=== PATIENT | female | born 1970 | race Two or more races ===

== ENCOUNTER 2018-09-30 11:33 | Inpatient (IN) | payer MEDICAID ==
[~2018-09-30] VITALS: Ht 165.1 cm; Wt 103.0 kg
[2018-09-30 11:49] VITALS: BP 183/91
[2018-09-30] MEDS ORDERED: furosemide 10 MG/1 ML 10ml inj IV ONE ×2 (13:00→13:45)
[2018-09-30 13:33] LABS: BASOPHILS % (AUTO) 0.4 % (0-1); EOSINOPHILS # (AUTO) 0.5 X10'3 (0-0.9); LYMPHOCYTES # (AUTO) 1.2 X10'3 (1.1-4.8); MONOCYTES # (AUTO) 0.6 X10'3 (0-0.9); NEUTROPHILS # (AUTO) 4.3 X10'3 (1.8-7.7); WHITE BLOOD COUNT 6.6 X10'3 (4.5-11.0)
[2018-09-30 13:34] LABS: ALANINE AMINOTRANSFERASE 22 U/L (12-78); ALBUMIN/GLOBULIN RATIO 0.8 (1.1-1.5); ALKALINE PHOSPHATASE 87 IU/L (46-116); ANION GAP 10 (8-16); ASPARTATE AMINO TRANSFERASE 23 U/L (10-37); BILIRUBIN,TOTAL 0.5 MG/DL (0.1-1.0); BLOOD UREA NITROGEN 19 MG/DL (7-18); BUN/CREATININE RATIO 22.6 (6.6-38.0); CALCIUM 8.5 MG/DL (8.5-10.1); CHLORIDE 103 MMOL/L (99-107); CREATININE 0.84 MG/DL (0.40-0.90); GLUCOSE 146 MG/DL (70-104); SODIUM 140 MMOL/L (135-145); TOTAL CARBON DIOXIDE 26.6 MMOL/L (24-32); TOTAL PROTEIN 6.6 G/DL (6.4-8.2); eGFR 72 ML/MIN
[2018-09-30 13:35] LABS: EOSINOPHILS % (AUTO) 7.7 % (0-6); HEMATOCRIT 24.7 % (35.0-45.0); HEMOGLOBIN 7.5 g/dl (12.0-16.0); LYMPHOCYTES % (AUTO) 18.4 % (21-51); MEAN CORPUSCULAR HEMOGLOBIN 18.9 PG (27.0-31.0); MEAN CORPUSCULAR HGB CONC 30.3 % (33.0-36.5); MEAN CORPUSCULAR VOLUME 62.3 FL (78-98); MEAN PLATELET VOLUME 9.8 FL (7.4-10.4); MONOCYTES % (AUTO) 9.1 % (2-12); NEUTROPHILS % (AUTO) 64.4 % (42-75); PLATELET COUNT 272 X10'3 (140-440); RED BLOOD COUNT 3.97 X10'6 (4.20-5.60)
[2018-09-30 13:38] LABS: D-DIMER 0.78 MG/L FEU (0-0.50); INR 1.2 INR; PARTIAL THROMBOPLASTIN TIME 27 SECONDS (22-32); PROTHROMBIN TIME 12.3 SECONDS (9.0-12.0)
[2018-09-30] MEDS ORDERED: potassium Cl 10 mEq/100mL bag IV ONE (13:50)
[2018-09-30 13:51] LABS: GIANT PLATELET FEW; LARGE PLATELETS FEW; PLATELET ESTIMATE NORMAL
[2018-09-30] MEDS ORDERED: potassium 10mEq/100ml NS w/LIDOcaine (10mg/bag) IV ONE (13:55)
[2018-09-30] MEDS ORDERED: ondansetron/PF 4mg/2ml inj IV PRN (14:25)
[2018-09-30] MEDS ORDERED: magnesium hydroxide 30ml (MOM) UD suspension PO PRN (14:25)
[2018-09-30] MEDS ORDERED: mag hydrox/Alum hydrox/simeth 30ml oral suspension PO PRN (14:25)
[2018-09-30] MEDS ORDERED: HYDROcodone/acetaminophen 5mg/325mg tablet PO PRN (14:25)
[2018-09-30] MEDS ORDERED: acetaminophen 325mg tablet PO PRN (14:25)
[2018-09-30] MEDS ORDERED: furosemide 10 MG/1 ML 10ml inj IV SCH (14:25)
[2018-09-30] MEDS ORDERED: morphine 2 MG/ML inj. syringe IV PRN ×2 (14:25)
[2018-09-30] MEDS ORDERED: iohexol 350MG/ML 100ml bottle IV ONE (14:59)
[2018-09-30] MEDS ORDERED: BECL10.62 INH (15:45)
[2018-09-30] MEDS ORDERED: IBUP-1984 PO (15:45)
[2018-09-30] MEDS ORDERED: AMLO10TA PO (15:45)
[2018-09-30] MEDS ORDERED: METF-436 PO (15:45)
[2018-09-30] MEDS ORDERED: ALBU18HF2 INH (15:45)
[2018-09-30] MEDS ORDERED: BENA20TA82 PO (15:55)
[2018-09-30] MEDS ORDERED: GABA-532 PO (15:55)
[2018-09-30] MEDS ORDERED: LORazepam 0.5 MG tablet PO PRN (16:00)
[2018-10-01] MEDS ORDERED: enoxaparin 40mg/0.4ml syringe SUBCUT SCH (08:00)
== END 2018-09-30 16:20 | disposition left against medical advice (07) | DRG 194 ==
LOC: ER 11:34 → ED HOLD 14:25 → CANBEDREQ 10-01 00:11
PROVIDERS: ADMIT Internal Medicine; ATTEND Internal Medicine
DX: I11.0 Hypertensive heart disease with heart failure (principal); E11.65 Type 2 diabetes mellitus with hyperglycemia; D50.9 Iron deficiency anemia, unspecified; F17.200 Nicotine dependence, unspecified, uncomplicated; E87.6 Hypokalemia; J45.909 Unspecified asthma, uncomplicated; I50.9 Heart failure, unspecified; Z53.21 Procedure and treatment not carried out due to patient leaving prior to being seen by health care provider; Z88.1 Allergy status to other antibiotic agents; Z88.6 Allergy status to analgesic agent; Z88.8 Allergy status to other drugs, medicaments and biological substances
CPT/HCPCS: 36415; 71045; 80053; 82948; 83880; 84484; 85025; 85379; 85610; 85730; 86885; 86900; 86901; 93005; 93306; 96365; 96375; 99285; G0378; J1940; J3480; Q9967

== ENCOUNTER 2019-06-06 23:47 | Inpatient (IN) | payer MEDICAID ==
[~2019-06-06] VITALS: Ht 167.6 cm; Wt 89.9 kg
[~2019-06-06 23:47] MED LIST: ALBU18HF2 INH; AMLO10TA PO; BECL10.62 INH; BENA20TA82 PO; GABA-532 PO; HYDR25TA4 PO; IBUP-1984 PO; METF-436 PO
[2019-06-07] MEDS ORDERED: furosemide 10 MG/1 ML 10ml inj IV ONE (00:05)
[2019-06-07] MEDS ORDERED: albuterol 2.5 MG/3 ML nebule NEB ONE (00:05)
[2019-06-07] MEDS ORDERED: nitroGLYCERIN 0.4mg/hour patch TD ONE (00:05)
[2019-06-07] MEDS ORDERED: nitroGLYCERIN 0.4mg SUBLingual tab SL PRN (00:05)
[2019-06-07 00:41] LABS: PARTIAL THROMBOPLASTIN TIME 29 SECONDS (22-32)
[2019-06-07 00:42] LABS: HEMOGLOBIN 8.3 g/dl (12.0-16.0); NEUTROPHILS # (AUTO) 5.5 X10'3 (1.8-7.7); WHITE BLOOD COUNT 7.6 X10'3 (4.5-11.0)
[2019-06-07 00:44] LABS: BASOPHILS # (AUTO) 0.1 X10'3 (0-0.2); BASOPHILS % (AUTO) 1.4 % (0-1); EOSINOPHILS # (AUTO) 0.2 X10'3 (0-0.9); HEMATOCRIT 28.8 % (35.0-45.0); LYMPHOCYTES # (AUTO) 1.1 X10'3 (1.1-4.8); LYMPHOCYTES % (AUTO) 14.4 % (21-51); MEAN CORPUSCULAR HEMOGLOBIN 20.9 PG (27.0-31.0); MEAN CORPUSCULAR HGB CONC 28.8 g/dL (33.0-36.5); MEAN CORPUSCULAR VOLUME 72.5 FL (78-98); MEAN PLATELET VOLUME 8.9 FL (7.4-10.4); MONOCYTES # (AUTO) 0.7 X10'3 (0-0.9); MONOCYTES % (AUTO) 9.3 % (2-12); NEUTROPHILS % (AUTO) 72.9 % (42-75); PLATELET COUNT 173 X10'3 (140-440); RED BLOOD COUNT 3.97 X10'6 (4.20-5.60); RED CELL DISTRIBUTION WIDTH 27.9 % (11.5-14.5)
[2019-06-07 00:53] LABS: ALANINE AMINOTRANSFERASE 23 U/L (12-78); ALBUMIN/GLOBULIN RATIO 0.7 (1.1-1.5); ALKALINE PHOSPHATASE 109 IU/L (46-116); ANION GAP 8 (8-16); ASPARTATE AMINO TRANSFERASE 26 U/L (10-37); BILIRUBIN,TOTAL 0.6 MG/DL (0.1-1.0); BLOOD UREA NITROGEN 8 MG/DL (7-18); CALCIUM 8.4 MG/DL (8.5-10.1); CHLORIDE 102 MMOL/L (99-107); CREATININE 0.73 MG/DL (0.40-0.90); ETHANOL < 0.010 GM/DL (0.0-0.010); GLUCOSE 151 MG/DL (70-104); LIPASE 82 U/L (73-393); MAGNESIUM 1.7 MG/DL (1.5-2.4); SODIUM 138 MMOL/L (135-145); TOTAL CARBON DIOXIDE 28.3 MMOL/L (24-32); TOTAL PROTEIN 7.2 G/DL (6.4-8.2); eGFR 85 ML/MIN
[2019-06-07] MEDS ORDERED: aspirin 81mg tab.chew PO ONE (01:15)
[2019-06-07] MEDS ORDERED: potassium 10mEq/100ml NS w/LIDOcaine (10mg/bag) IV ONE (01:25)
[2019-06-07] MEDS ORDERED: potassium Cl 10 mEq/100mL bag IV ONE (01:25)
[2019-06-07] MEDS ORDERED: magnesium 2GM in 50ml NS 50 ML IV ONE (01:25)
[2019-06-07] MEDS ORDERED: magnesium 4gm in 100ml NS 100 ML IV PRN (01:30)
[2019-06-07] MEDS ORDERED: potassium Cl 20 mEq SR tablet PO PRN (01:30)
[2019-06-07] MEDS ORDERED: magnesium 2GM in 50ml NS 50 ML IV PRN (01:30)
[2019-06-07] MEDS ORDERED: potassium CL 10mEq/100ml bag 100 ML IV PRN ×2 (01:30)
[2019-06-07 02:45] VITALS: BP 156/82
[2019-06-07 04:27] LABS: HYPOCHROMASIA 2+; PLATELET ESTIMATE NORMAL
[2019-06-07 04:28] LABS: ANISOCYTOSIS 3+; MICROCYTOSIS 1+
[2019-06-07] MEDS ORDERED: MESSAGE TO PHARMACY PO ONE (04:45)
[2019-06-07] MEDS ORDERED: dextrose 50%-water 50ml dispensing syringe IV PRN ×2 (04:45)
[2019-06-07] MEDS ORDERED: glucagon, human recombinant 1mg kit SUBCUT PRN (04:45)
[2019-06-07] MEDS ORDERED: dextrose ORAL solution 15 GM/59 ML bottle PO PRN ×2 (04:45)
[2019-06-07] MEDS ORDERED: insulin Lispro (HumaLOG) vial - multi-dose SQ SCH (04:45)
--- NOTE | 2019-06-07 06:22 | NUR ---
Problems reprioritized. Patient report given, questions answered & plan of care reviewed with Rosalba CURTIS.
[2019-06-07 08:00] VITALS: BP 166/88
[2019-06-07] MEDS ORDERED: pantoprazole 40 MG vial IV SCH (08:00)
[2019-06-07] MEDS: K and/or MAG REPLACEMENT MC SCH (08:00)
[2019-06-07] MEDS ORDERED: heparin, porcine 5000 units/ml vial SQ SCH (08:00)
[2019-06-07] MEDS ORDERED: ESOMEPRAZOLE 40 MG VIAL IV SCH (08:00)
[2019-06-07] MEDS: furosemide 10 MG/1 ML 10ml inj IV SCH ×2 (08:12→19:50)
[2019-06-07] MEDS: levoTHYROXINE 25mcg tablet PO SCH (08:12)
[2019-06-07] MEDS: potassium Cl 20 mEq SR tablet PO PRN ×3 (08:14→21:08)
[2019-06-07] MEDS ORDERED: FURO-150 PO (09:14)
[2019-06-07] MEDS ORDERED: LEVO25TA7 PO (09:14)
[2019-06-07] MEDS ORDERED: POTA10TA15 PO (09:15)
[2019-06-07] MEDS ORDERED: FERR-28 PO (09:16)
[2019-06-07] MEDS: ipratropium/albuterol 3ml nebule NEB PRN (09:18)
[2019-06-07] MEDS ORDERED: pneumococcal 23-VAL P-sac vacc 25 mcg/0.5ml vial IMVAC ONE (10:00)
[2019-06-07] MEDS ORDERED: HYDR12.55 PO (10:18)
[2019-06-07 11:00] VITALS: BP 137/66
[2019-06-07] MEDS: nicotine 14mg patch - 24hr TD SCH (15:23)
[2019-06-07] MEDS: HYDROcodone/acetaminophen 5mg/325mg tablet PO PRN ×2 (16:14→21:08)
[2019-06-07 20:00] VITALS: BP 152/94
[2019-06-07] MEDS: insulin glargine (Lantus) pen - multi-dose SQ SCH (21:00)
[2019-06-07] MEDS ORDERED: famotidine 20mg tablet PO SCH (21:00)
[2019-06-07] MEDS: ondansetron/PF 4mg/2ml inj IV PRN (21:08)
[2019-06-07] MEDS: gabapentin 300mg capsule PO SCH (21:09)
[2019-06-08] VITALS: BP 138/79
[2019-06-08] MEDS: albuterol 2.5 MG/3 ML nebule NEB PRN (02:47)
[2019-06-08 05:21] LABS: ALBUMIN 2.8 G/DL (3.4-5.0); ANION GAP 5 (8-16); BLOOD UREA NITROGEN 9 MG/DL (7-18); BUN/CREATININE RATIO 9.3 (6.6-38.0); CALCIUM 8.2 MG/DL (8.5-10.1); CHLORIDE 103 MMOL/L (99-107); CREATININE 0.97 MG/DL (0.40-0.90); GLUCOSE 120 MG/DL (70-104); MAGNESIUM 1.4 MG/DL (1.5-2.4); POTASSIUM 3.8 MMOL/L (3.5-5.1); SODIUM 139 MMOL/L (135-145); TOTAL CARBON DIOXIDE 31.1 MMOL/L (24-32); eGFR 61 ML/MIN
[2019-06-08 05:28] LABS: BASOPHILS # (AUTO) 0.1 X10'3 (0-0.2); BASOPHILS % (AUTO) 1.1 % (0-1); EOSINOPHILS # (AUTO) 0.1 X10'3 (0-0.9); EOSINOPHILS % (AUTO) 1.7 % (0-6); HEMATOCRIT 26.6 % (35.0-45.0); HEMOGLOBIN 7.7 g/dl (12.0-16.0); LYMPHOCYTES # (AUTO) 0.9 X10'3 (1.1-4.8); LYMPHOCYTES % (AUTO) 15.1 % (21-51); MEAN CORPUSCULAR HEMOGLOBIN 21.2 PG (27.0-31.0); MEAN CORPUSCULAR HGB CONC 29.1 g/dL (33.0-36.5); MEAN CORPUSCULAR VOLUME 72.8 FL (78-98); MEAN PLATELET VOLUME 8.3 FL (7.4-10.4); MONOCYTES # (AUTO) 0.5 X10'3 (0-0.9); MONOCYTES % (AUTO) 7.5 % (2-12); NEUTROPHILS # (AUTO) 4.6 X10'3 (1.8-7.7); NEUTROPHILS % (AUTO) 74.6 % (42-75); PLATELET COUNT 185 X10'3 (140-440); RED BLOOD COUNT 3.65 X10'6 (4.20-5.60); RED CELL DISTRIBUTION WIDTH 27.6 % (11.5-14.5); WHITE BLOOD COUNT 6.1 X10'3 (4.5-11.0)
[2019-06-08] MEDS: HYDROcodone/acetaminophen 5mg/325mg tablet PO PRN ×3 (05:55→21:08)
--- NOTE | 2019-06-08 06:22 | NUR ---
Patient in room ALISSON 350. I have received report from EVER Casas and had the opportunity to ask questions and assume patient care.
[2019-06-08 07:00] VITALS: BP 156/80
[2019-06-08] MEDS: K and/or MAG REPLACEMENT MC SCH (07:07)
[2019-06-08] MEDS: pantoprazole 40mg Tablet.DR PO SCH (07:28)
[2019-06-08] MEDS: levoTHYROXINE 25mcg tablet PO SCH (07:28)
[2019-06-08] MEDS: ferrous sulfate 325mg tablet PO SCH (07:29)
[2019-06-08] MEDS: furosemide 10 MG/1 ML 10ml inj IV SCH ×2 (07:29→20:06)
[2019-06-08] MEDS: potassium chloride 10mEq ER tablet PO SCH (07:29)
[2019-06-08] MEDS: amLODIPine 5mg tablet PO SCH (07:30)
[2019-06-08] MEDS: HYDROchlorothiazide 12.5mg capsule PO SCH (07:30)
[2019-06-08] MEDS: magnesium Cl slow-release 64mg tablet PO PRN ×2 (07:31→20:03)
[2019-06-08] MEDS: lisinopril 10 MG tablet PO SCH (07:31)
[2019-06-08] MEDS: nicotine 14mg patch - 24hr TD SCH (07:31)
[2019-06-08] MEDS ORDERED: levoTHYROXINE 25mcg tablet PO SCH (08:00)
[2019-06-08] MEDS: budesonide 0.5mg/2ml UD nebule IH SCH ×2 (09:00→21:06)
[2019-06-08] MEDS: ondansetron/PF 4mg/2ml inj IV PRN ×2 (09:04→18:37)
--- NOTE | 2019-06-08 09:14 | NUR ---
Patient reported nausea to PCT. Zofran taken into patient and patient had vomited into BSC. Emesis was undigested food. Unable to measure due to it being mixed with urine. Zofran given to patient. Will reassess in one hour to ensure patient is no longer nauseated.
[2019-06-08 11:00] VITALS: BP 120/56
[2019-06-08] MEDS: lactulose 20gm/30ml cup PO SCH ×2 (15:31→20:33)
--- NOTE | 2019-06-08 18:21 | NUR ---
Problems reprioritized. Patient report given, questions answered & plan of care reviewed with EVER Farooq.
[2019-06-08 20:00] VITALS: BP 120/64
[2019-06-08] MEDS: gabapentin 300mg capsule PO SCH (20:03)
--- NOTE | 2019-06-08 20:34 | NUR ---
PT. STATES SHE DOES NOT WANT LACTULOSE D/T MAKES HER VERY NAUSEOUS.
--- NOTE | 2019-06-08 20:34 | NUR ---
Patient in room [facility] 350. I have received report from EVER Gomez and had the opportunity to ask questions and assume patient care. Addendum: 06/08/19 at 2034 by Coral Morocho RN Amended: Links added.
[2019-06-08] MEDS: insulin glargine (Lantus) pen - multi-dose SQ SCH (21:00)
[2019-06-09] VITALS: BP 136/74
[2019-06-09] MEDS: HYDROcodone/acetaminophen 5mg/325mg tablet PO PRN ×3 (01:25→20:00)
--- NOTE | 2019-06-09 06:10 | NUR ---
Patient in room [facility] 350. I have received report from EVER Farooq and had the opportunity to ask questions and assume patient care.
[2019-06-09 06:11] LABS: BASOPHILS % (AUTO) 0.7 % (0-1); EOSINOPHILS # (AUTO) 0.1 X10'3 (0-0.9); HEMATOCRIT 25.9 % (35.0-45.0); HEMOGLOBIN 7.5 g/dl (12.0-16.0); LYMPHOCYTES # (AUTO) 1.2 X10'3 (1.1-4.8); LYMPHOCYTES % (AUTO) 19.2 % (21-51); MEAN CORPUSCULAR HEMOGLOBIN 21.2 PG (27.0-31.0); MEAN CORPUSCULAR HGB CONC 29.1 g/dL (33.0-36.5); MEAN CORPUSCULAR VOLUME 72.9 FL (78-98); MEAN PLATELET VOLUME 8.4 FL (7.4-10.4); MONOCYTES # (AUTO) 0.6 X10'3 (0-0.9); MONOCYTES % (AUTO) 9.2 % (2-12); NEUTROPHILS # (AUTO) 4.4 X10'3 (1.8-7.7); NEUTROPHILS % (AUTO) 68.9 % (42-75); PLATELET COUNT 189 X10'3 (140-440); RED BLOOD COUNT 3.56 X10'6 (4.20-5.60); RED CELL DISTRIBUTION WIDTH 27.1 % (11.5-14.5); WHITE BLOOD COUNT 6.3 X10'3 (4.5-11.0)
--- NOTE | 2019-06-09 06:12 | NUR ---
Problems reprioritized. Patient report given, questions answered & plan of care reviewed with EVER Gomez. Addendum: 06/09/19 at 0613 by Coral Morocho RN Amended: Links added.
[2019-06-09 06:34] LABS: ALBUMIN 2.7 G/DL (3.4-5.0); ANION GAP 5 (8-16); BLOOD UREA NITROGEN 14 MG/DL (7-18); BUN/CREATININE RATIO 13.1 (6.6-38.0); CALCIUM 8.5 MG/DL (8.5-10.1); CHLORIDE 102 MMOL/L (99-107); CREATININE 1.07 MG/DL (0.40-0.90); GLUCOSE 102 MG/DL (70-104); MAGNESIUM 1.6 MG/DL (1.5-2.4); POTASSIUM 4.4 MMOL/L (3.5-5.1); SODIUM 138 MMOL/L (135-145); eGFR 55 ML/MIN
[2019-06-09] MEDS: K and/or MAG REPLACEMENT MC SCH (06:52)
[2019-06-09 06:53] LABS: PLATELET ESTIMATE NORMAL
[2019-06-09 06:54] LABS: ANISOCYTOSIS 3+; HYPOCHROMASIA 2+; MICROCYTOSIS 1+; POLYCHROMASIA 1+
[2019-06-09 07:00] VITALS: BP 168/82
[2019-06-09] MEDS: pantoprazole 40mg Tablet.DR PO SCH (07:16)
[2019-06-09] MEDS: levoTHYROXINE 25mcg tablet PO SCH (07:16)
[2019-06-09] MEDS: nicotine 14mg patch - 24hr TD SCH (07:17)
[2019-06-09] MEDS: furosemide 10 MG/1 ML 10ml inj IV SCH ×2 (07:19→20:38)
[2019-06-09] MEDS: potassium chloride 10mEq ER tablet PO SCH (07:20)
[2019-06-09] MEDS: HYDROchlorothiazide 12.5mg capsule PO SCH (07:21)
[2019-06-09] MEDS: amLODIPine 5mg tablet PO SCH (07:21)
[2019-06-09] MEDS: lisinopril 10 MG tablet PO SCH (07:21)
[2019-06-09] MEDS: lactulose 20gm/30ml cup PO SCH ×3 (08:00→23:32)
[2019-06-09] MEDS: ferrous sulfate 325mg tablet PO SCH (08:00)
[2019-06-09] MEDS: budesonide 0.5mg/2ml UD nebule IH SCH ×2 (08:56→19:57)
[2019-06-09 11:00] VITALS: BP 131/77
[2019-06-09 18:00] VITALS: BP 120/73
--- NOTE | 2019-06-09 18:20 | NUR ---
Problems reprioritized. Patient report given, questions answered & plan of care reviewed with EVER Siegel.
--- NOTE | 2019-06-09 18:21 | NUR ---
Patient in room [facility] 350. I have received report from EVER Gomez and had the opportunity to ask questions and assume patient care.
[2019-06-09] MEDS: albuterol 2.5 MG/3 ML nebule NEB PRN (19:57)
[2019-06-09] MEDS: gabapentin 300mg capsule PO SCH (20:39)
[2019-06-09] MEDS: insulin glargine (Lantus) pen - multi-dose SQ SCH (20:45)
[2019-06-10] VITALS: BP 129/66
[2019-06-10] MEDS: HYDROcodone/acetaminophen 5mg/325mg tablet PO PRN ×4 (04:51→23:32)
[2019-06-10 05:36] LABS: ALBUMIN 3.1 G/DL (3.4-5.0); ANION GAP 5 (8-16); BLOOD UREA NITROGEN 15 MG/DL (7-18); BUN/CREATININE RATIO 16.7 (6.6-38.0); CALCIUM 9.1 MG/DL (8.5-10.1); CHLORIDE 100 MMOL/L (99-107); GLUCOSE 101 MG/DL (70-104); MAGNESIUM 1.6 MG/DL (1.5-2.4); POTASSIUM 4.4 MMOL/L (3.5-5.1); SODIUM 137 MMOL/L (135-145); TOTAL CARBON DIOXIDE 32.4 MMOL/L (24-32); eGFR 67 ML/MIN
[2019-06-10 05:45] LABS: BASOPHILS # (AUTO) 0.1 X10'3 (0-0.2); BASOPHILS % (AUTO) 0.8 % (0-1); EOSINOPHILS # (AUTO) 0.1 X10'3 (0-0.9); HEMATOCRIT 26.8 % (35.0-45.0); HEMOGLOBIN 7.8 g/dl (12.0-16.0); LYMPHOCYTES % (AUTO) 16.1 % (21-51); MEAN CORPUSCULAR HEMOGLOBIN 21.3 PG (27.0-31.0); MEAN CORPUSCULAR VOLUME 73.7 FL (78-98); MEAN PLATELET VOLUME 9.2 FL (7.4-10.4); MONOCYTES # (AUTO) 0.7 X10'3 (0-0.9); MONOCYTES % (AUTO) 10.8 % (2-12); NEUTROPHILS # (AUTO) 4.6 X10'3 (1.8-7.7); NEUTROPHILS % (AUTO) 70.3 % (42-75); PLATELET COUNT 181 X10'3 (140-440); RED BLOOD COUNT 3.63 X10'6 (4.20-5.60); RED CELL DISTRIBUTION WIDTH 27.1 % (11.5-14.5); WHITE BLOOD COUNT 6.5 X10'3 (4.5-11.0)
--- NOTE | 2019-06-10 06:27 | NUR ---
Problems reprioritized. Patient report given, questions answered & plan of care reviewed with EVER Duke.
--- NOTE | 2019-06-10 06:28 | NUR ---
Patient in room [facility]ISSON 350. I have received report from EVER MCCURDY and had the opportunity to ask questions and assume patient care.
[2019-06-10] MEDS: levoTHYROXINE 25mcg tablet PO SCH (07:10)
[2019-06-10] MEDS: amLODIPine 5mg tablet PO SCH (07:10)
[2019-06-10] MEDS: potassium chloride 10mEq ER tablet PO SCH (07:10)
[2019-06-10] MEDS: HYDROchlorothiazide 12.5mg capsule PO SCH (07:10)
[2019-06-10] MEDS: pantoprazole 40mg Tablet.DR PO SCH (07:11)
[2019-06-10] MEDS: ferrous sulfate 325mg tablet PO SCH (07:11)
[2019-06-10] MEDS: lactulose 20gm/30ml cup PO SCH ×3 (07:11→23:33)
[2019-06-10] MEDS: furosemide 10 MG/1 ML 10ml inj IV SCH (07:11)
[2019-06-10] MEDS: lisinopril 10 MG tablet PO SCH (07:11)
[2019-06-10] MEDS: nicotine 14mg patch - 24hr TD SCH (07:12)
[2019-06-10 07:14] LABS: PLATELET ESTIMATE NORMAL
[2019-06-10 07:15] LABS: ANISOCYTOSIS 3+; HYPOCHROMASIA 1+; MICROCYTOSIS 1+; POLYCHROMASIA FEW; STOMATOCYTES 2+
[2019-06-10 07:16] LABS: LARGE PLATELETS FEW; SCHISTOCYTES FEW
[2019-06-10] MEDS: K and/or MAG REPLACEMENT MC SCH (07:18)
[2019-06-10 07:19] VITALS: BP 157/83
[2019-06-10] MEDS: budesonide 0.5mg/2ml UD nebule IH SCH ×2 (09:00→20:15)
[2019-06-10] MEDS: ondansetron/PF 4mg/2ml inj IV PRN (09:24)
[2019-06-10 11:45] VITALS: BP 97/70
[2019-06-10 18:00] VITALS: BP 160/76
--- NOTE | 2019-06-10 18:38 | NUR ---
Problems reprioritized. Patient report given, questions answered & plan of care reviewed with EVER HAMM.
--- NOTE | 2019-06-10 18:39 | NUR ---
Patient in room [facility] 350. I have received report from Kenan CURTIS and had the opportunity to ask questions and assume patient care.
[2019-06-10] MEDS: gabapentin 300mg capsule PO SCH (19:47)
[2019-06-10] MEDS: albuterol 2.5 MG/3 ML nebule NEB PRN (20:15)
[2019-06-10] MEDS: insulin glargine (Lantus) pen - multi-dose SQ SCH (21:00)
[2019-06-10 23:55] VITALS: BP 158/74
[2019-06-11 04:49] LABS: BASOPHILS % (AUTO) 0.9 % (0-1); EOSINOPHILS # (AUTO) 0.1 X10'3 (0-0.9); EOSINOPHILS % (AUTO) 2.8 % (0-6); HEMATOCRIT 25.4 % (35.0-45.0); HEMOGLOBIN 7.4 g/dl (12.0-16.0); LYMPHOCYTES # (AUTO) 1.1 X10'3 (1.1-4.8); LYMPHOCYTES % (AUTO) 20.3 % (21-51); MEAN CORPUSCULAR HEMOGLOBIN 21.6 PG (27.0-31.0); MEAN CORPUSCULAR HGB CONC 29.3 g/dL (33.0-36.5); MEAN CORPUSCULAR VOLUME 73.8 FL (78-98); MEAN PLATELET VOLUME 8.3 FL (7.4-10.4); MONOCYTES # (AUTO) 0.7 X10'3 (0-0.9); MONOCYTES % (AUTO) 12.3 % (2-12); NEUTROPHILS # (AUTO) 3.4 X10'3 (1.8-7.7); NEUTROPHILS % (AUTO) 63.7 % (42-75); PLATELET COUNT 183 X10'3 (140-440); RED BLOOD COUNT 3.44 X10'6 (4.20-5.60); RED CELL DISTRIBUTION WIDTH 26.7 % (11.5-14.5); WHITE BLOOD COUNT 5.4 X10'3 (4.5-11.0)
[2019-06-11 05:02] LABS: ALBUMIN 2.9 G/DL (3.4-5.0); ANION GAP 4 (8-16); BLOOD UREA NITROGEN 17 MG/DL (7-18); CALCIUM 8.7 MG/DL (8.5-10.1); CHLORIDE 98 MMOL/L (99-107); CREATININE 1.13 MG/DL (0.40-0.90); GLUCOSE 92 MG/DL (70-104); MAGNESIUM 1.6 MG/DL (1.5-2.4); POTASSIUM 4.7 MMOL/L (3.5-5.1); SODIUM 136 MMOL/L (135-145); TOTAL CARBON DIOXIDE 34.2 MMOL/L (24-32); eGFR 51 ML/MIN
[2019-06-11] MEDS: furosemide 10 MG/1 ML 10ml inj IV SCH ×2 (05:05→14:19)
--- NOTE | 2019-06-11 06:30 | NUR ---
Patient in room MED 311. I have received report from Ray CURTIS and had the opportunity to ask questions and assume patient care.
--- NOTE | 2019-06-11 06:40 | NUR ---
Problems reprioritized. Patient report given, questions answered & plan of care reviewed with Brandon RN. Pt sitting up on side of bed. A+Ox4, no s/s of distress. IV is intact
[2019-06-11 07:00] VITALS: BP 154/79
[2019-06-11 07:22] LABS: PLATELET ESTIMATE NORMAL
[2019-06-11 07:23] LABS: ANISOCYTOSIS 3+; HYPOCHROMASIA 1+; MICROCYTOSIS 1+; POLYCHROMASIA 2+; STOMATOCYTES 1+
[2019-06-11] MEDS: budesonide 0.5mg/2ml UD nebule IH SCH ×2 (07:30→20:45)
[2019-06-11] MEDS: ipratropium/albuterol 3ml nebule NEB PRN (07:31)
[2019-06-11] MEDS: K and/or MAG REPLACEMENT MC SCH (08:00)
[2019-06-11] MEDS: ferrous sulfate 325mg tablet PO SCH (08:00)
[2019-06-11] MEDS: potassium chloride 10mEq ER tablet PO SCH (09:23)
[2019-06-11] MEDS: HYDROchlorothiazide 12.5mg capsule PO SCH (09:23)
[2019-06-11] MEDS: lisinopril 10 MG tablet PO SCH (09:24)
[2019-06-11] MEDS: pantoprazole 40mg Tablet.DR PO SCH (09:25)
[2019-06-11] MEDS: levoTHYROXINE 25mcg tablet PO SCH (09:26)
[2019-06-11] MEDS: amLODIPine 5mg tablet PO SCH (09:26)
[2019-06-11] MEDS: HYDROcodone/acetaminophen 5mg/325mg tablet PO PRN ×2 (09:27→21:00)
[2019-06-11] MEDS: nicotine 14mg patch - 24hr TD SCH (09:27)
[2019-06-11] MEDS: lactulose 20gm/30ml cup PO SCH ×2 (09:29→17:06)
[2019-06-11 11:00] VITALS: BP 145/75
--- NOTE | 2019-06-11 11:07 | NUR ---
Initial: Pt admit with anasarca likely d/t fluid overload from CHF and cirrhosis of the liver. Pt being diuresed with Lasix. Per paracentesis report 06/10 a paracentesis was not performed d/t no fluid identified in all 4 quadrants. Pt with documented wt change of -125 kg, likely not accurate as the wt change occurred in 1 day, however likely that pt will experiences some wt changes r/t fluid with -6.55L fluid balance over the last five days. Pt currently on a heart healthy diet with documented 100% PO intake meeting nutrient needs. LBM 06/10. No nutrition diagnosis at this time. Will continue to follow. Recommendations: 1) Continue heart healthy diet 2) Continue iron supplement given hx anemia and low MCV; 73.8 today 3) Wt per rx Addendum: 06/11/19 at [address] Amended: Links added.
[2019-06-11] MEDS ORDERED: furosemide inj 100 MG in normal saline 100ml IV soln 90 ML IV SCH (15:40)
--- NOTE | 2019-06-11 17:25 | NUR ---
Problems reprioritized. Patient report given, questions answered & plan of care reviewed with Angelica CURTIS. Was notified that I was responsible for an admission assessment on this patient by receiving RN. I notified RN that I was not responsible for a 2 RN skin check that had not been done 5 days prior on admission. I responded that I was not responsible for that skin assessment and that upon transfer that receiving nurse would need to repeat the assessment even if I were do complete it at that time. Also informed nurse that if any skin wound was found that it would fall on surgical unit if they were to find any breakdown of skin. Reluctantly a uncalled for skin assessment was completed before transfer.
--- NOTE | 2019-06-11 17:30 | NUR ---
RECEIVED REPORT FROM JEWELL RN ON SURGICAL AND INFORMED HIM THAT 2 RN SKIN ASSESSMENT NEEDED TO BE DONE ON PATIENT BEFORE TRANSFER AND JEWELL RN REFUSED, STATED IT WASN'T HIS RESPONSIBILITY BECAUSE SHE WOULD BE MY PATIENT IN 5 MINUTES
[2019-06-11 18:00] VITALS: BP 124/61
--- NOTE | 2019-06-11 18:40 | NUR ---
Orientee documentation: I have reviewed and agree with all interventions, assessments performed and documented by EVER Dominguez.
[2019-06-11] MEDS: furosemide inj 100 MG in normal saline 100ml IV soln 90 ML IV SCH (19:04)
[2019-06-11] MEDS: albuterol 2.5 MG/3 ML nebule NEB PRN (20:45)
[2019-06-11] MEDS: insulin glargine (Lantus) pen - multi-dose SQ SCH (21:00)
[2019-06-11] MEDS: gabapentin 300mg capsule PO SCH (21:00)
[2019-06-11] MEDS: rifaximin 550mg tablet PO SCH (21:22)
[2019-06-11 22:00] VITALS: BP 130/51
[2019-06-12] VITALS (10 sets, daily range): BP systolic 105–141; BP diastolic 44–68
[2019-06-12] MEDS: lactulose 20gm/30ml cup PO SCH ×3 (01:45→16:02)
[2019-06-12] MEDS: HYDROcodone/acetaminophen 5mg/325mg tablet PO PRN ×4 (01:50→20:35)
[2019-06-12] MEDS: furosemide inj 100 MG in normal saline 100ml IV soln 90 ML IV SCH ×2 (05:02→10:54)
--- NOTE | 2019-06-12 05:50 | NUR ---
Patient has been noncompliant with instructions of not taking off nasal cannula for any period of time as well as resisting preventative fall risk instructions. Patient has been found sitting on edge of bed falling asleep, when told to lay down to sleep, patient sits up at the edge of the bed shortly after instruction. Will continue to monitor closely.
[2019-06-12 06:01] LABS: BASOPHILS % (AUTO) 0.8 % (0-1); EOSINOPHILS # (AUTO) 0.1 X10'3 (0-0.9); EOSINOPHILS % (AUTO) 2.1 % (0-6); HEMATOCRIT 24.5 % (35.0-45.0); HEMOGLOBIN 7.3 g/dl (12.0-16.0); LYMPHOCYTES % (AUTO) 21.8 % (21-51); MEAN CORPUSCULAR HEMOGLOBIN 21.5 PG (27.0-31.0); MEAN CORPUSCULAR HGB CONC 29.6 g/dL (33.0-36.5); MEAN CORPUSCULAR VOLUME 72.5 FL (78-98); MEAN PLATELET VOLUME 8.2 FL (7.4-10.4); MONOCYTES # (AUTO) 0.6 X10'3 (0-0.9); MONOCYTES % (AUTO) 12.1 % (2-12); NEUTROPHILS # (AUTO) 2.9 X10'3 (1.8-7.7); NEUTROPHILS % (AUTO) 63.2 % (42-75); PLATELET COUNT 176 X10'3 (140-440); RED BLOOD COUNT 3.38 X10'6 (4.20-5.60); RED CELL DISTRIBUTION WIDTH 26.9 % (11.5-14.5); WHITE BLOOD COUNT 4.6 X10'3 (4.5-11.0)
[2019-06-12 06:39] LABS: ALBUMIN 2.8 G/DL (3.4-5.0); ANION GAP 3 (8-16); BLOOD UREA NITROGEN 15 MG/DL (7-18); CALCIUM 8.7 MG/DL (8.5-10.1); CHLORIDE 96 MMOL/L (99-107); CREATININE 0.88 MG/DL (0.40-0.90); GLUCOSE 91 MG/DL (70-104); MAGNESIUM 1.5 MG/DL (1.5-2.4); SODIUM 137 MMOL/L (135-145); TOTAL CARBON DIOXIDE 38.1 MMOL/L (24-32); eGFR 69 ML/MIN
--- NOTE | 2019-06-12 06:52 | NUR ---
Patient in room MED 311. I have received report from ERIK and had the opportunity to ask questions and assume patient care.
[2019-06-12] MEDS: potassium chloride 10mEq ER tablet PO SCH (07:17)
[2019-06-12] MEDS: amLODIPine 5mg tablet PO SCH (07:17)
[2019-06-12] MEDS: lisinopril 10 MG tablet PO SCH (07:17)
[2019-06-12] MEDS: ferrous sulfate 325mg tablet PO SCH (07:18)
[2019-06-12] MEDS: HYDROchlorothiazide 12.5mg capsule PO SCH (07:18)
[2019-06-12] MEDS: levoTHYROXINE 25mcg tablet PO SCH (07:18)
[2019-06-12] MEDS: pantoprazole 40mg Tablet.DR PO SCH (07:19)
[2019-06-12] MEDS: nicotine 14mg patch - 24hr TD SCH (07:22)
[2019-06-12] MEDS: K and/or MAG REPLACEMENT MC SCH (07:30)
[2019-06-12 08:10] LABS: ANISOCYTOSIS 3+; HYPOCHROMASIA 2+; MICROCYTOSIS 1+; PLATELET ESTIMATE NORMAL; POIKILOCYTOSIS FEW; POLYCHROMASIA 2+; STOMATOCYTES 1+
[2019-06-12] MEDS: rifaximin 550mg tablet PO SCH ×2 (09:04→20:35)
[2019-06-12] MEDS: budesonide 0.5mg/2ml UD nebule IH SCH ×2 (10:35→19:20)
[2019-06-12] MEDS: ipratropium/albuterol 3ml nebule NEB PRN (10:41)
--- NOTE | 2019-06-12 10:46 | NUR ---
PAGER ID: [phone] MESSAGE: 311: oYlanda - any plans for how long you want pt on Lasix gtt? ty nurse Harris ext [phone]
--- NOTE | 2019-06-12 11:04 | NUR ---
case management paged: [phone]: PATO - patient is agreeable to go to [facility] for liver work up. ty
--- NOTE | 2019-06-12 11:05 | NUR ---
Dr. velasquez paged: PAGER ID: [phone] MESSAGE: 311: Yolanda - pt agreeable to transfer to [facility] for liver workup if this is still an option. nurse Harris ext [phone]
--- NOTE | 2019-06-12 12:45 | NUR ---
This morning pt was non-compliant with directions from RNs. Pt was told multiple times not to fall asleep on bedside table while on side of bed because she could fall. RNs advised her to sit in bed instead. She refused and continued laying on bedside table. Dr. Gaytan rounded about 0900 and told pt to sit up or the pt would fall and pt refused. Dr Gaytan told pt that if she was not going to be compliant than she would just discharge her. Pt became emotional and began crying, Lucila told pt she would be back to speak with her. Physical Therapy came with recliner chair for pt. Pt is now sitting in that comfortably.
--- NOTE | 2019-06-12 15:26 | NUR ---
PAGER ID: [phone] MESSAGE: [phone] Yolanda. Patient is asking if we can put in a real jolly until Lasix drip is done. Angelica [phone] Dr Gaytan called back, new order received, ok to place jolly.
[2019-06-12 16:26] LABS: ALBUMIN 2.7 G/DL (3.4-5.0); ANION GAP 5 (8-16); BLOOD UREA NITROGEN 15 MG/DL (7-18); BUN/CREATININE RATIO 15.3 (6.6-38.0); CALCIUM 8.8 MG/DL (8.5-10.1); CHLORIDE 93 MMOL/L (99-107); CREATININE 0.98 MG/DL (0.40-0.90); GLUCOSE 116 MG/DL (70-104); MAGNESIUM 1.5 MG/DL (1.5-2.4); PHOSPHORUS 3.9 MG/DL (2.3-4.5); POTASSIUM 3.8 MMOL/L (3.5-5.1); SODIUM 138 MMOL/L (135-145); eGFR 61 ML/MIN
[2019-06-12 16:34] LABS: TOTAL CARBON DIOXIDE 40.5 MMOL/L (24-32)
--- NOTE | 2019-06-12 16:42 | NUR ---
PAGER ID: [phone] MESSAGE: [phone] Yolanda. FYI venous C02 is 40.5. No complaints from patient. Angelica [phone]
--- NOTE | 2019-06-12 18:16 | NUR ---
Orienteer documentation: I have reviewed and agree with all interventions, assessments performed and documented by Susan CURTIS.
--- NOTE | 2019-06-12 18:17 | NUR ---
Problems reprioritized. Patient report given, questions answered & plan of care reviewed with Valery CURTIS.
[2019-06-12] MEDS: albuterol 2.5 MG/3 ML nebule NEB PRN (19:20)
[2019-06-12] MEDS: insulin glargine (Lantus) pen - multi-dose SQ SCH (20:30)
[2019-06-12] MEDS: gabapentin 300mg capsule PO SCH (20:35)
[2019-06-12 21:01] LABS: OCCULT BLOOD STOOL NEGATIVE (Neg)
[2019-06-12 22:18] LABS: ALBUMIN 2.8 G/DL (3.4-5.0); ANION GAP 5 (8-16); BLOOD UREA NITROGEN 14 MG/DL (7-18); BUN/CREATININE RATIO 16.5 (6.6-38.0); CHLORIDE 95 MMOL/L (99-107); CREATININE 0.85 MG/DL (0.40-0.90); GLUCOSE 107 MG/DL (70-104); MAGNESIUM 1.5 MG/DL (1.5-2.4); PHOSPHORUS 3.7 MG/DL (2.3-4.5); POTASSIUM 3.9 MMOL/L (3.5-5.1); SODIUM 137 MMOL/L (135-145); TOTAL CARBON DIOXIDE 37.5 MMOL/L (24-32); eGFR 71 ML/MIN
--- NOTE | 2019-06-13 00:23 | NUR ---
Pagelincoln night hospitalist regarding patient's fall. ACCE 311 patient had a fall. She kept on getting out of bed d/t SOB (CHF), put her in recliner, and she leaned forward and fell down on the floor. Buttocks and right knee pain. Assessed patient right away, no other injury. No heparin.
[2019-06-13] MEDS: lactulose 20gm/30ml cup PO SCH ×3 (00:26→16:25)
[2019-06-13] MEDS: furosemide inj 100 MG in normal saline 100ml IV soln 90 ML IV SCH ×4 (00:57→23:04)
[2019-06-13] MEDS: ipratropium/albuterol 3ml nebule NEB PRN (01:12)
[2019-06-13] MEDS: HYDROcodone/acetaminophen 5mg/325mg tablet PO PRN ×4 (01:47→16:26)
[2019-06-13 02:00] VITALS: BP 142/78
[2019-06-13 03:41] LABS: BASOPHILS % (AUTO) 0.7 % (0-1); EOSINOPHILS # (AUTO) 0.1 X10'3 (0-0.9); EOSINOPHILS % (AUTO) 2.3 % (0-6); HEMATOCRIT 27.6 % (35.0-45.0); HEMOGLOBIN 8.3 g/dl (12.0-16.0); LYMPHOCYTES # (AUTO) 0.9 X10'3 (1.1-4.8); LYMPHOCYTES % (AUTO) 19.6 % (21-51); MEAN CORPUSCULAR HEMOGLOBIN 22.3 PG (27.0-31.0); MEAN CORPUSCULAR HGB CONC 30.1 g/dL (33.0-36.5); MEAN CORPUSCULAR VOLUME 74.1 FL (78-98); MEAN PLATELET VOLUME 8.6 FL (7.4-10.4); MONOCYTES # (AUTO) 0.5 X10'3 (0-0.9); MONOCYTES % (AUTO) 10.4 % (2-12); NEUTROPHILS # (AUTO) 3.2 X10'3 (1.8-7.7); PLATELET COUNT 176 X10'3 (140-440); RED BLOOD COUNT 3.72 X10'6 (4.20-5.60); RED CELL DISTRIBUTION WIDTH 26.6 % (11.5-14.5); WHITE BLOOD COUNT 4.7 X10'3 (4.5-11.0)
[2019-06-13 04:12] LABS: ALBUMIN 2.9 G/DL (3.4-5.0); ANION GAP 4 (8-16); BLOOD UREA NITROGEN 13 MG/DL (7-18); BUN/CREATININE RATIO 15.3 (6.6-38.0); CALCIUM 8.7 MG/DL (8.5-10.1); CHLORIDE 94 MMOL/L (99-107); CREATININE 0.85 MG/DL (0.40-0.90); GLUCOSE 126 MG/DL (70-104); MAGNESIUM 1.5 MG/DL (1.5-2.4); PHOSPHORUS 3.8 MG/DL (2.3-4.5); POTASSIUM 3.5 MMOL/L (3.5-5.1); SODIUM 137 MMOL/L (135-145); TOTAL CARBON DIOXIDE 39.5 MMOL/L (24-32); eGFR 71 ML/MIN
[2019-06-13 04:47] LABS: ANISOCYTOSIS 3+; HYPOCHROMASIA 2+; MICROCYTOSIS 1+; PLATELET ESTIMATE NORMAL; POLYCHROMASIA 1+
[2019-06-13 07:00] VITALS: BP 102/46
[2019-06-13] MEDS: levoTHYROXINE 25mcg tablet PO SCH (07:31)
[2019-06-13] MEDS: pantoprazole 40mg Tablet.DR PO SCH (07:32)
[2019-06-13] MEDS: potassium chloride 10mEq ER tablet PO SCH (07:32)
[2019-06-13] MEDS: HYDROchlorothiazide 12.5mg capsule PO SCH (07:32)
[2019-06-13] MEDS: lisinopril 10 MG tablet PO SCH (07:32)
[2019-06-13] MEDS: ferrous sulfate 325mg tablet PO SCH (07:32)
[2019-06-13] MEDS: amLODIPine 5mg tablet PO SCH (07:32)
[2019-06-13] MEDS: rifaximin 550mg tablet PO SCH ×2 (07:33→20:01)
[2019-06-13] MEDS: nicotine 14mg patch - 24hr TD SCH (07:34)
[2019-06-13] MEDS: K and/or MAG REPLACEMENT MC SCH (07:35)
[2019-06-13] MEDS: albuterol 2.5 MG/3 ML nebule NEB PRN ×2 (08:29→20:20)
[2019-06-13] MEDS: budesonide 0.5mg/2ml UD nebule IH SCH ×2 (08:29→20:20)
[2019-06-13 11:30] VITALS: BP 111/53
--- NOTE | 2019-06-13 13:00 | NUR ---
Discussed with Dr. Gaytan the lasix drip, states she wishes to run it another 24 hours. Obtained an accurate weight and discussed whether she wanted an ammonia lab ordered, she replied, "no."
--- NOTE | 2019-06-13 14:15 | NUR ---
Pt. continues to be noncompliant when it comes to laying in bed to sleep. The pt. keeps placing her head on her bedside table to sleep. We have told her multiple not to do this because it is a fall hazard. She feel last night doing this same thing. I have told her, the techs, the doctor, and the RN taking care of her but she still will not comply.
[2019-06-13 15:00] VITALS: BP 117/52
--- NOTE | 2019-06-13 16:45 | NUR ---
311-[facility]. Pt. needs [facility]. Thank You.
[2019-06-13 17:10] LABS: ABG BASE EXCESS 10.7 mmol/L (-2.0-3.0); ABG OXYGEN SATURATION 92.4 % (95-98); ABG PCO2 (T) 52.3 mmHg (35.0-45.0); ABG PH (T) 7.456 (7.350-7.450); ABG PO2 (T) 69.8 mmHg (83-108); ALLEN'S TEST Positive; FCOHb 0.8 % (0.5-1.5); FLOW 2 L/min; FMetHb 0.3 % (0.3-1.12); FO2Hb 91.4 % (94-100); TOTAL HEMOGLOBIN 9.8 G/dl (12.0-16.0)
--- NOTE | 2019-06-13 17:30 | NUR ---
Aiden hospitalist, "Lesa [phone]- Rm: 311 Marilin Guerrero pCO- 52.3 (H) & pHCO3- 36 (H)"
[2019-06-13 18:00] VITALS: BP 129/65
--- NOTE | 2019-06-13 18:15 | NUR ---
Patient in room MED 311. I have received report from Lesa CURTIS and had the opportunity to ask questions and assume patient care.
--- NOTE | 2019-06-13 18:25 | NUR ---
Problems reprioritized. Patient report given, questions answered & plan of care reviewed with Gali CURTIS.
[2019-06-13] MEDS: gabapentin 300mg capsule PO SCH (20:01)
[2019-06-13] MEDS: insulin glargine (Lantus) pen - multi-dose SQ SCH (21:00)
[2019-06-13 22:08] LABS: ALANINE AMINOTRANSFERASE 25 U/L (12-78); ALBUMIN 2.9 G/DL (3.4-5.0); ALBUMIN/GLOBULIN RATIO 0.7 (1.1-1.5); ALKALINE PHOSPHATASE 115 IU/L (46-116); ANION GAP 4 (8-16); ASPARTATE AMINO TRANSFERASE 41 U/L (10-37); BILIRUBIN,DIRECT 0.5 MG/DL (0-0.3); BLOOD UREA NITROGEN 8 MG/DL (7-18); CHLORIDE 94 MMOL/L (99-107); GLUCOSE 115 MG/DL (70-104); MAGNESIUM 1.6 MG/DL (1.5-2.4); PHOSPHORUS 3.6 MG/DL (2.3-4.5); POTASSIUM 3.3 MMOL/L (3.5-5.1); SODIUM 140 MMOL/L (135-145); eGFR 77 ML/MIN
[2019-06-13 22:12] LABS: TOTAL CARBON DIOXIDE 41.8 MMOL/L (24-32)
--- NOTE | 2019-06-13 22:30 | NUR ---
Notification: Paged Dr Castillo RE: Pt Marilin Guerrero rm 311 has a critical venous CO2 of 41.8 which is up from 39.5 gisela RN ext [phone]
[2019-06-13] MEDS ORDERED: potassium CL 10mEq/100ml bag 100 ML IV PRN (23:55)
[2019-06-13] MEDS ORDERED: magnesium 2GM in 50ml NS 50 ML IV PRN (23:55)
[2019-06-13] MEDS ORDERED: potassium Cl 20 mEq SR tablet PO PRN (23:55)
[2019-06-13] MEDS ORDERED: magnesium Cl slow-release 64mg tablet PO PRN (23:55)
[2019-06-13] MEDS ORDERED: magnesium 4gm in 100ml NS 100 ML IV PRN (23:55)
[2019-06-14] MEDS: lactulose 20gm/30ml cup PO SCH ×4 (00:03→23:53)
[2019-06-14] MEDS: temazepam 15mg capsule PO PRN (00:03)
[2019-06-14] MEDS: potassium Cl 20 mEq SR tablet PO PRN ×5 (00:08→21:13)
[2019-06-14 02:00] VITALS: BP_SYST 139; BP_SYST 98; BP_DIAS 48; BP_DIAS 74
[2019-06-14 03:30] LABS: BASOPHILS % (AUTO) 0.8 % (0-1); EOSINOPHILS # (AUTO) 0.1 X10'3 (0-0.9); EOSINOPHILS % (AUTO) 2.6 % (0-6); HEMATOCRIT 30.2 % (35.0-45.0); HEMOGLOBIN 9.1 g/dl (12.0-16.0); LYMPHOCYTES # (AUTO) 0.9 X10'3 (1.1-4.8); LYMPHOCYTES % (AUTO) 20.3 % (21-51); MEAN CORPUSCULAR HEMOGLOBIN 22.5 PG (27.0-31.0); MEAN CORPUSCULAR HGB CONC 30.2 g/dL (33.0-36.5); MEAN CORPUSCULAR VOLUME 74.4 FL (78-98); MEAN PLATELET VOLUME 8.7 FL (7.4-10.4); MONOCYTES # (AUTO) 0.4 X10'3 (0-0.9); MONOCYTES % (AUTO) 8.3 % (2-12); NEUTROPHILS # (AUTO) 3.1 X10'3 (1.8-7.7); PLATELET COUNT 184 X10'3 (140-440); RED BLOOD COUNT 4.06 X10'6 (4.20-5.60); RED CELL DISTRIBUTION WIDTH 27.4 % (11.5-14.5); WHITE BLOOD COUNT 4.6 X10'3 (4.5-11.0)
[2019-06-14 03:42] LABS: ANION GAP 3 (8-16); BLOOD UREA NITROGEN 9 MG/DL (7-18); BUN/CREATININE RATIO 11.7 (6.6-38.0); CHLORIDE 96 MMOL/L (99-107); CREATININE 0.77 MG/DL (0.40-0.90); GLUCOSE 102 MG/DL (70-104); MAGNESIUM 1.7 MG/DL (1.5-2.4); PHOSPHORUS 3.8 MG/DL (2.3-4.5); POTASSIUM 3.4 MMOL/L (3.5-5.1); SODIUM 140 MMOL/L (135-145); eGFR 80 ML/MIN
[2019-06-14] MEDS: HYDROcodone/acetaminophen 5mg/325mg tablet PO PRN ×3 (04:22→19:13)
[2019-06-14 04:37] LABS: ANISOCYTOSIS 3+; HYPOCHROMASIA 1+; MICROCYTOSIS 1+; PLATELET ESTIMATE NORMAL
[2019-06-14 04:44] LABS: POLYCHROMASIA FEW
[2019-06-14 06:00] VITALS: BP 128/63
--- NOTE | 2019-06-14 06:28 | NUR ---
Problems reprioritized. Patient report given, questions answered & plan of care reviewed with Roxy CURTIS.
--- NOTE | 2019-06-14 06:47 | NUR ---
Patient in room MED 311. I have received report from Raven CURTIS and had the opportunity to ask questions and assume patient care.
[2019-06-14] MEDS: budesonide 0.5mg/2ml UD nebule IH SCH ×2 (07:18→19:51)
[2019-06-14] MEDS: albuterol 2.5 MG/3 ML nebule NEB PRN ×2 (07:19→19:51)
[2019-06-14] MEDS: levoTHYROXINE 25mcg tablet PO SCH (07:40)
[2019-06-14] MEDS: HYDROchlorothiazide 12.5mg capsule PO SCH (07:40)
[2019-06-14] MEDS: pantoprazole 40mg Tablet.DR PO SCH (07:40)
[2019-06-14] MEDS: ferrous sulfate 325mg tablet PO SCH (07:40)
[2019-06-14] MEDS: amLODIPine 5mg tablet PO SCH (07:40)
[2019-06-14] MEDS: lisinopril 10 MG tablet PO SCH (07:41)
[2019-06-14] MEDS: rifaximin 550mg tablet PO SCH ×2 (07:41→19:12)
[2019-06-14] MEDS: nicotine 14mg patch - 24hr TD SCH (07:42)
[2019-06-14] MEDS: potassium chloride 10mEq ER tablet PO SCH (07:42)
[2019-06-14] MEDS: K and/or MAG REPLACEMENT MC SCH (07:50)
[2019-06-14] MEDS: furosemide inj 100 MG in normal saline 100ml IV soln 90 ML IV SCH ×2 (09:17→19:19)
[2019-06-14 09:39] LABS: ALBUMIN 2.8 G/DL (3.4-5.0); ANION GAP 2 (8-16); BLOOD UREA NITROGEN 7 MG/DL (7-18); BUN/CREATININE RATIO 8.5 (6.6-38.0); CALCIUM 8.8 MG/DL (8.5-10.1); CHLORIDE 96 MMOL/L (99-107); CREATININE 0.82 MG/DL (0.40-0.90); GLUCOSE 123 MG/DL (70-104); MAGNESIUM 1.6 MG/DL (1.5-2.4); PHOSPHORUS 3.7 MG/DL (2.3-4.5); POTASSIUM 3.2 MMOL/L (3.5-5.1); SODIUM 139 MMOL/L (135-145); eGFR 74 ML/MIN
[2019-06-14 09:46] LABS: TOTAL CARBON DIOXIDE 40.8 MMOL/L (24-32)
--- NOTE | 2019-06-14 10:10 | NUR ---
PAGER ID: [phone] MESSAGE: Roxy on ACCE at 0246 re Marilin Yolanda in 311, her CO2 is critical at 40.8. This is down from 41.0.
[2019-06-14 11:00] VITALS: BP 125/68
[2019-06-14 15:00] VITALS: BP 90/42
[2019-06-14 15:57] LABS: ALBUMIN 2.8 G/DL (3.4-5.0); ANION GAP 5 (8-16); BLOOD UREA NITROGEN 7 MG/DL (7-18); BUN/CREATININE RATIO 7.9 (6.6-38.0); CALCIUM 8.6 MG/DL (8.5-10.1); CHLORIDE 94 MMOL/L (99-107); CREATININE 0.89 MG/DL (0.40-0.90); GLUCOSE 111 MG/DL (70-104); MAGNESIUM 1.7 MG/DL (1.5-2.4); PHOSPHORUS 3.5 MG/DL (2.3-4.5); POTASSIUM 3.1 MMOL/L (3.5-5.1); SODIUM 138 MMOL/L (135-145); TOTAL CARBON DIOXIDE 39.5 MMOL/L (24-32); eGFR 68 ML/MIN
[2019-06-14 18:00] VITALS: BP 105/48
--- NOTE | 2019-06-14 18:28 | NUR ---
Problems reprioritized. Patient report given, questions answered & plan of care reviewed with Juanita CURTIS.
--- NOTE | 2019-06-14 18:29 | NUR ---
Patient in room MED 311. I have received report from Harris CURTIS and had the opportunity to ask questions and assume patient care.
[2019-06-14] MEDS: insulin glargine (Lantus) pen - multi-dose SQ SCH (21:00)
[2019-06-14] MEDS: gabapentin 300mg capsule PO SCH (21:13)
[2019-06-14 21:59] LABS: ANION GAP 1 (8-16); BLOOD UREA NITROGEN 8 MG/DL (7-18); BUN/CREATININE RATIO 7.6 (6.6-38.0); CALCIUM 9.1 MG/DL (8.5-10.1); CHLORIDE 97 MMOL/L (99-107); CREATININE 1.05 MG/DL (0.40-0.90); GLUCOSE 115 MG/DL (70-104); MAGNESIUM 1.7 MG/DL (1.5-2.4); PHOSPHORUS 3.8 MG/DL (2.3-4.5); POTASSIUM 3.8 MMOL/L (3.5-5.1); SODIUM 140 MMOL/L (135-145); eGFR 56 ML/MIN
[2019-06-14 22:00] VITALS: BP 90/43
[2019-06-14 22:02] LABS: TOTAL CARBON DIOXIDE 41.8 MMOL/L (24-32)
--- NOTE | 2019-06-14 22:05 | NUR ---
Lab called with critical value of 41.8 Carbon Dioxide, Raven CURTIS received report Addendum: 06/14/19 at 2224 by Fidelia Bonilla RN PAGER ID: [phone] MESSAGE: critical value on 311A, Marilin Ramirez at 2205 CO2 41.8 Fidelia Bonilla RN ACCE Unit 3107
--- NOTE | 2019-06-14 22:31 | NUR ---
Per Dr. Castillo, Continue to monitor patient clinically for any changes. Will continue to monitor patient and will give this information to Fidelia Hawley RN.
[2019-06-15] MEDS: HYDROcodone/acetaminophen 5mg/325mg tablet PO PRN ×2 (00:15→10:23)
[2019-06-15] MEDS: temazepam 15mg capsule PO PRN (01:39)
[2019-06-15] MEDS: furosemide inj 100 MG in normal saline 100ml IV soln 90 ML IV SCH (05:10)
[2019-06-15 05:32] LABS: ANION GAP 3 (8-16); BLOOD UREA NITROGEN 8 MG/DL (7-18); BUN/CREATININE RATIO 8.9 (6.6-38.0); CALCIUM 9.3 MG/DL (8.5-10.1); CHLORIDE 98 MMOL/L (99-107); GLUCOSE 99 MG/DL (70-104); MAGNESIUM 1.9 MG/DL (1.5-2.4); POTASSIUM 3.4 MMOL/L (3.5-5.1); SODIUM 140 MMOL/L (135-145); eGFR 67 ML/MIN
--- NOTE | 2019-06-15 05:51 | NUR ---
Orienteer documentation: I have reviewed and agree with all interventions, assessments performed and documented by EVER Mistry. Orienteer Medication Administration: For this medication-pass time frame, all medication were reviewed, dispensed, administered and documented per hospital policy by EVER Mistry.
--- NOTE | 2019-06-15 05:58 | NUR ---
Patient did not require sitter NOC shift 06/14-06/15/2019.
--- NOTE | 2019-06-15 06:15 | NUR ---
Patient in room MED 311. I have received report from Juanita CURTIS and had the opportunity to ask questions and assume patient care.
--- NOTE | 2019-06-15 06:35 | NUR ---
Problems reprioritized. Patient report given, questions answered & plan of care reviewed with Lesa CURTIS.
[2019-06-15 06:41] VITALS: BP 118/67
[2019-06-15] MEDS: nicotine 14mg patch - 24hr TD SCH (07:33)
[2019-06-15] MEDS: lactulose 20gm/30ml cup PO SCH (07:33)
[2019-06-15] MEDS: potassium chloride 10mEq ER tablet PO SCH (07:33)
[2019-06-15] MEDS: ferrous sulfate 325mg tablet PO SCH (07:33)
[2019-06-15] MEDS: levoTHYROXINE 25mcg tablet PO SCH (07:34)
[2019-06-15] MEDS: potassium Cl 20 mEq SR tablet PO PRN (07:34)
[2019-06-15] MEDS: pantoprazole 40mg Tablet.DR PO SCH (07:34)
[2019-06-15] MEDS: HYDROchlorothiazide 12.5mg capsule PO SCH (07:35)
[2019-06-15] MEDS: rifaximin 550mg tablet PO SCH (07:35)
[2019-06-15] MEDS: lisinopril 10 MG tablet PO SCH (07:35)
[2019-06-15] MEDS: amLODIPine 5mg tablet PO SCH (07:36)
[2019-06-15] MEDS: K and/or MAG REPLACEMENT MC SCH (07:36)
[2019-06-15] MEDS: budesonide 0.5mg/2ml UD nebule IH SCH (07:50)
[2019-06-15] MEDS: albuterol 2.5 MG/3 ML nebule NEB PRN ×2 (07:50→11:53)
[2019-06-15] MEDS ORDERED: FURO40TA4 PO (10:59)
[2019-06-15] MEDS ORDERED: RIFA550T PO (10:59)
[2019-06-15 11:00] VITALS: BP 133/73
[2019-06-15] MEDS ORDERED: LACT10SO32 PO (11:03)
[2019-06-15] MEDS ORDERED: POTA20TA19 PO (11:03)
--- NOTE | 2019-06-15 13:17 | NUR ---
Patient discharging at this time via W/C per spouse private vehicle per [facility] staff. Performed discharge instructions, verbalized understanding, meds called in [facility] on [address], IV lasix stoped and IV and tele monitor discontinued, F/C removed and tolerated well, attempted to void with success, Belongings sent with patient,Noted patient finished her allotted 750 ml fluid amount early, Eager to go home.
== END 2019-06-15 13:16 | disposition home health service (06) ==
LOC: ER 23:48 → SUR 3N 06-07 02:50 → MED 3N 06-11 17:38
PROVIDERS: ADMIT Internal Medicine; ATTEND Internal Medicine
PROC: 30233N1 Transfusion of Nonautologous Red Blood Cells into Peripheral Vein, Percutaneous Approach (ICD-10-PCS; principal; 2019-06-12)
DX: K74.60 Unspecified cirrhosis of liver (principal); J96.11 Chronic respiratory failure with hypoxia; K72.90 Hepatic failure, unspecified without coma; E11.40 Type 2 diabetes mellitus with diabetic neuropathy, unspecified; R18.8 Other ascites; Z99.81 Dependence on supplemental oxygen; E87.6 Hypokalemia; B18.2 Chronic viral hepatitis C; D63.8 Anemia in other chronic diseases classified elsewhere; E03.9 Hypothyroidism, unspecified; F12.90 Cannabis use, unspecified, uncomplicated; F41.9 Anxiety disorder, unspecified; I10 Essential (primary) hypertension; F15.90 Other stimulant use, unspecified, uncomplicated; J44.9 Chronic obstructive pulmonary disease, unspecified; K21.9 Gastro-esophageal reflux disease without esophagitis; Z79.84 Long term (current) use of oral hypoglycemic drugs; Z88.6 Allergy status to analgesic agent; Z88.1 Allergy status to other antibiotic agents; Z88.8 Allergy status to other drugs, medicaments and biological substances; Z91.19 Patient's noncompliance with other medical treatment and regimen; Z79.899 Other long term (current) drug therapy; Z79.890 Hormone replacement therapy
CPT/HCPCS: 36415; 36600; 71045; 76705; 80048; 80053; 80069; 80076; 80320; 82140; 82272; 82803; 82948; 83036; 83605; 83690; 83735; 83880; 84100; 84443; 84484; 85018; 85025; 85610; 85730; 86803; 86885; 86900; 86901; 86920; 87040; 87081; 90732; 93005; 93306; 94640; 94760; 96365; 96368; 96375; 97161; 97164; 97530; 99285; G0378; J1815; J1940; J2405; J3475; J3480; J7626; P9016

== ENCOUNTER 2019-08-22 06:17 | Inpatient (IN) | payer MEDICAID ==
[2019-08-22] VITALS (7 sets, daily range): BP systolic 136–186; BP diastolic 76–109
[~2019-08-22] VITALS: Ht 167.6 cm; Wt 89.5 kg
[~2019-08-22 06:17] MED LIST changes: +FERR-28 PO; -HYDR25TA4 PO; +LACT10SO32 PO; +LEVO25TA7 PO; +POTA10TA15 PO; +RIFA550T PO
[2019-08-22] MEDS ORDERED: methylPREDNISolone sod succ 125mg/2ml vial IV ONE (06:55)
[2019-08-22] MEDS ORDERED: albuterol 2.5 MG/3 ML nebule CONTNEB PRN (06:55)
[2019-08-22] MEDS ORDERED: CARV-50 PO (06:57)
[2019-08-22] MEDS ORDERED: FURO80TA87 PO (06:57)
[2019-08-22 06:58] LABS: HEMOGLOBIN 10.5 g/dl (12.0-16.0); MEAN CORPUSCULAR HEMOGLOBIN 21.8 PG (27.0-31.0)
[2019-08-22 07:00] LABS: BASOPHILS # (AUTO) 0.1 X10'3 (0-0.2); BASOPHILS % (AUTO) 0.9 % (0-1); EOSINOPHILS # (AUTO) 0.1 X10'3 (0-0.9); EOSINOPHILS % (AUTO) 1.7 % (0-6); HEMATOCRIT 35.2 % (35.0-45.0); LYMPHOCYTES # (AUTO) 1.2 X10'3 (1.1-4.8); MEAN CORPUSCULAR HGB CONC 29.9 g/dL (33.0-36.5); MEAN PLATELET VOLUME 9.1 FL (7.4-10.4); MONOCYTES # (AUTO) 0.6 X10'3 (0-0.9); MONOCYTES % (AUTO) 8.9 % (2-12); NEUTROPHILS # (AUTO) 4.5 X10'3 (1.8-7.7); NEUTROPHILS % (AUTO) 69.5 % (42-75); RED BLOOD COUNT 4.83 X10'6 (4.20-5.60); RED CELL DISTRIBUTION WIDTH 20.7 % (11.5-14.5); WHITE BLOOD COUNT 6.5 X10'3 (4.5-11.0)
[2019-08-22 07:07] LABS: PARTIAL THROMBOPLASTIN TIME 29 SECONDS (22-32)
[2019-08-22 07:10] LABS: ALANINE AMINOTRANSFERASE 67 U/L (12-78); ALBUMIN/GLOBULIN RATIO 0.8 (1.1-1.5); ALKALINE PHOSPHATASE 111 IU/L (46-116); ANION GAP 13 (8-16); ASPARTATE AMINO TRANSFERASE 71 U/L (10-37); BILIRUBIN,TOTAL 0.6 MG/DL (0.1-1.0); BLOOD UREA NITROGEN 25 MG/DL (7-18); CALCIUM 8.8 MG/DL (8.5-10.1); CHLORIDE 104 MMOL/L (99-107); GLUCOSE 160 MG/DL (70-104); SODIUM 143 MMOL/L (135-145); TOTAL CARBON DIOXIDE 26.2 MMOL/L (24-32); TOTAL PROTEIN 6.9 G/DL (6.4-8.2); eGFR 59 ML/MIN
[2019-08-22] MEDS ORDERED: furosemide 10 MG/1 ML 10ml inj IV ONE (07:15)
--- NOTE | 2019-08-22 07:15 | NUR ---
Verbal order from Dr. Vera for lasix 40 mg IV once now. Will place order as prescribed.
--- NOTE | 2019-08-22 07:16 | NUR ---
RT tx in progress.
[2019-08-22 07:30] LABS: PLATELET COUNT 114 X10'3 (140-440)
[2019-08-22] MEDS ORDERED: magnesium 2GM in 50ml NS 50 ML IV ONE (07:35)
[2019-08-22] MEDS ORDERED: potassium 10mEq/100ml NS w/LIDOcaine (10mg/bag) IV ONE (07:45)
[2019-08-22] MEDS ORDERED: potassium Cl 10 mEq/100mL bag IV ONE (07:55)
--- NOTE | 2019-08-22 08:00 | NUR ---
Patient c/o iv site burning after Potassium initiation, decreased infusion rate to 70 mL/hr. Patient states not currently burning.
--- NOTE | 2019-08-22 08:15 | NUR ---
Patient yelling in room, stating, "it's burning". Decreased patients potassium infusion rate to 50 mL/hr. Patient states, "feels much better."
[2019-08-22] MEDS ORDERED: nitroGLYCERIN 0.4mg/hour patch TD ONE (08:45)
[2019-08-22] MEDS ORDERED: aspirin 81mg tab.chew PO ONE (08:45)
[2019-08-22] MEDS ORDERED: magnesium hydroxide 30ml (MOM) UD suspension PO PRN (09:05)
[2019-08-22] MEDS ORDERED: HYDROcodone/acetaminophen 10/325mg tab PO PRN (09:05)
[2019-08-22] MEDS ORDERED: morphine 2 MG/ML inj. syringe IV PRN ×2 (09:05)
[2019-08-22] MEDS ORDERED: acetaminophen 325mg tablet PO PRN (09:05)
[2019-08-22] MEDS ORDERED: ondansetron/PF 4mg/2ml inj IV PRN (09:05)
[2019-08-22] MEDS ORDERED: mag hydrox/Alum hydrox/simeth 30ml oral suspension PO PRN (09:05)
[2019-08-22] MEDS: furosemide 40mg/4ml inj IV SCH ×2 (09:05→20:15)
[2019-08-22] MEDS ORDERED: HYDROcodone/acetaminophen 5mg/325mg tablet PO PRN (09:05)
[2019-08-22] MEDS ORDERED: glucagon, human recombinant 1mg kit SUBCUT PRN (09:20)
[2019-08-22] MEDS ORDERED: dextrose ORAL solution 15 GM/59 ML bottle PO PRN ×2 (09:20)
[2019-08-22] MEDS ORDERED: dextrose 50%-water 50ml dispensing syringe IV PRN ×2 (09:20)
[2019-08-22] MEDS ORDERED: MESSAGE TO PHARMACY PO ONE (09:20)
[2019-08-22 09:22] LABS: D-DIMER 0.74 MG/L FEU (0-0.50)
[2019-08-22 09:42] LABS: HEMOGLOBIN A1C 6.2 % (4.5-6.2)
--- NOTE | 2019-08-22 10:25 | NUR ---
Paged Dr. Lara.
--- NOTE | 2019-08-22 10:35 | NUR ---
Paged Doctor Rusu regarding need for potassium replacement per protocol, continued elevation blood pressure even after nitro patch and lasix, Patient also taken PRN treatments at home and would like MD to consider ordering daily medication for SOB.
[2019-08-22] MEDS ORDERED: cloNIDine 0.1 mg tablet PO ONE (10:55)
[2019-08-22] MEDS ORDERED: potassium Cl 20 mEq SR tablet PO PRN (10:55)
[2019-08-22] MEDS ORDERED: potassium CL 10mEq/100ml bag 100 ML IV PRN (10:55)
--- NOTE | 2019-08-22 11:00 | NUR ---
Spoke with Dr. Lara regarding patient blood pressure he gave telephone verbal order for clonidine 0.2 mg once now. I also discussed RT tx daily at which he stated that he was waiting for pharmacy to adjust and then he would order. I spoke with him regarding patients decreased potassium of 3.0 and if he wanted to start patient on potassium and magnesium protocol, he gave telephone verbal order to do so. Will place orders per MD and Valencia CURTIS aware of new orders.
--- NOTE | 2019-08-22 11:02 | NUR ---
RECEIVED REPORT FROM EVER RENEE IN ER. PT ARRIVED TO UNIT IN STABLE CONDITION, ORIENTED TO UNIT, BED LOW, LOCKED, CALL LIGHT IN REACH.
--- NOTE | 2019-08-22 11:25 | NUR ---
potassium 40 mEq was administered, 3 med checks were completed. Medication was scanned but did not save. primary RN Valencia is aware.
--- NOTE | 2019-08-22 11:54 | NUR ---
PAGED DR. HAIR promotional table spacer PAGER ID: [phone] MESSAGE: CODY Esthela [address] RT REQUESTING SV NEB W/JUAN A NEB Q4H AND SV NEB W/ 2.5ALBUTEROL PLEASE
[2019-08-22] MEDS ORDERED: albuterol 2.5 MG/3 ML nebule NEB PRN (12:00)
[2019-08-22] MEDS ORDERED: ipratropium/albuterol 3ml nebule ONE (12:14)
[2019-08-22] MEDS: ipratropium/albuterol 3ml nebule NEB SCH ×4 (12:23→23:14)
[2019-08-22 14:09] LABS: MAGNESIUM 1.5 MG/DL (1.5-2.4)
--- NOTE | 2019-08-22 14:19 | NUR ---
PAGED DR. EATON PAGER ID: [phone] MESSAGE: CODY [place]CHO[place] [address] CRITICAL [facility] K 3. 0 BEING REPLACED
[2019-08-22] MEDS: potassium Cl 20 mEq SR tablet PO PRN ×4 (14:53→20:16)
--- NOTE | 2019-08-22 18:07 | NUR ---
Report rec'd from natali Birmingham.
--- NOTE | 2019-08-22 18:57 | NUR ---
Problems reprioritized. Patient report given, questions answered & plan of care reviewed with EVER GARNER.
--- NOTE | 2019-08-22 19:00 | NUR ---
Student documentation: I have reviewed and agree with all interventions, assessments performed and documented by JOSEPH.
--- NOTE | 2019-08-22 19:00 | NUR ---
Student Medication Administration: For this medication-pass time frame, all medication were reviewed, dispensed, administered and documented per hospital policy by JOSEPH.
[2019-08-22] MEDS: insulin Lispro (HumaLOG) vial - multi-dose SQ SCH (19:05)
[2019-08-22] MEDS: gabapentin 300mg capsule PO SCH (20:15)
[2019-08-22] MEDS: insulin glargine (Lantus) pen - multi-dose SQ SCH (21:39)
--- NOTE | 2019-08-22 21:45 | NUR ---
Pt had home Nitro patch on Right shoulder, was taken off at 2145. Will begin new hosp order in the AM. Addendum: 08/22/19 at 2150 by Isabella Silveira RN Pt had Nitro patch on Right shoulder from ED, was taken off at 2145. Will begin new hosp order in the AM.
[2019-08-23 02:00] VITALS: BP 123/72
[2019-08-23] MEDS: ipratropium/albuterol 3ml nebule NEB SCH ×6 (03:00→23:00)
[2019-08-23 06:09] LABS: BASOPHILS % (AUTO) 0.4 % (0-1); EOSINOPHILS % (AUTO) 0.4 % (0-6); HEMATOCRIT 32.4 % (35.0-45.0); HEMOGLOBIN 9.8 g/dl (12.0-16.0); LYMPHOCYTES # (AUTO) 1.6 X10'3 (1.1-4.8); LYMPHOCYTES % (AUTO) 21.1 % (21-51); MEAN CORPUSCULAR HEMOGLOBIN 22.3 PG (27.0-31.0); MEAN CORPUSCULAR HGB CONC 30.3 g/dL (33.0-36.5); MEAN CORPUSCULAR VOLUME 73.5 FL (78-98); MONOCYTES # (AUTO) 0.9 X10'3 (0-0.9); MONOCYTES % (AUTO) 12.4 % (2-12); NEUTROPHILS % (AUTO) 65.7 % (42-75); PLATELET COUNT 117 X10'3 (140-440); RED BLOOD COUNT 4.41 X10'6 (4.20-5.60); RED CELL DISTRIBUTION WIDTH 20.8 % (11.5-14.5); WHITE BLOOD COUNT 7.6 X10'3 (4.5-11.0)
--- NOTE | 2019-08-23 06:15 | NUR ---
Patient in room PCU 3013b. I have received report from EVER Mason and had the opportunity to ask questions and assume patient care. Patient sitting up at edge of bed, all needs met at this time. Will continue to monitor.
--- NOTE | 2019-08-23 06:23 | NUR ---
Report given to natali Orlando.
[2019-08-23 06:35] LABS: ALBUMIN 2.8 G/DL (3.4-5.0); ANION GAP 5 (8-16); BLOOD UREA NITROGEN 29 MG/DL (7-18); BUN/CREATININE RATIO 31.2 (6.6-38.0); CALCIUM 8.7 MG/DL (8.5-10.1); CHLORIDE 102 MMOL/L (99-107); CREATININE 0.93 MG/DL (0.40-0.90); GLUCOSE 89 MG/DL (70-104); MAGNESIUM 1.6 MG/DL (1.5-2.4); SODIUM 139 MMOL/L (135-145); TOTAL CARBON DIOXIDE 32.1 MMOL/L (24-32); eGFR 64 ML/MIN
[2019-08-23 06:50] LABS: ANISOCYTOSIS 3+; HYPOCHROMASIA 1+; MICROCYTOSIS 1+; PLATELET ESTIMATE NORMAL
[2019-08-23 07:07] VITALS: BP 123/71
[2019-08-23] MEDS ORDERED: nitroGLYCERIN 0.4mg/hour patch TD SCH (08:00)
[2019-08-23] MEDS: furosemide 40mg/4ml inj IV SCH ×2 (08:23→20:16)
[2019-08-23] MEDS: levoTHYROXINE 25mcg tablet PO SCH (08:23)
[2019-08-23] MEDS: nicotine 14mg patch - 24hr TD SCH (08:24)
[2019-08-23] MEDS: carvedilol 6.25mg tablet PO SCH (08:26)
[2019-08-23] MEDS: insulin Lispro (HumaLOG) vial - multi-dose SQ SCH (08:30)
--- NOTE | 2019-08-23 09:17 | NUR ---
Dr. Lara at bedside, new order for PT eval and treat for patient
[2019-08-23] MEDS ORDERED: FLU VACC QS 2019-20 (6 MOS UP) 60 MCG/0.5 ML VIAL IMVAC ONE (10:00)
[2019-08-23 11:00] VITALS: BP 101/56
[2019-08-23 15:00] VITALS: BP 107/70
[2019-08-23 18:00] VITALS: BP 103/60
--- NOTE | 2019-08-23 18:36 | NUR ---
Problems reprioritized. Patient report given, questions answered & plan of care reviewed with EVER Zabala.
[2019-08-23] MEDS ORDERED: proCHLORperazine 10 MG/2 ml inj IV PRN (19:40)
[2019-08-23] MEDS: gabapentin 300mg capsule PO SCH (20:16)
[2019-08-23] MEDS: insulin glargine (Lantus) pen - multi-dose SQ SCH (21:00)
[2019-08-23 22:00] VITALS: BP 111/60
[2019-08-24] VITALS (13 sets, daily range): BP systolic 94–146; BP diastolic 59–108
[2019-08-24] MEDS: ipratropium/albuterol 3ml nebule NEB SCH ×6 (03:04→22:45)
--- NOTE | 2019-08-24 05:32 | NUR ---
Patient in room PCU 3013. I have received report from EVER Orlando and had the opportunity to ask questions and assume patient care.
[2019-08-24 05:49] LABS: BASOPHILS # (AUTO) 0.1 X10'3 (0-0.2); BASOPHILS % (AUTO) 1.2 % (0-1); EOSINOPHILS # (AUTO) 0.1 X10'3 (0-0.9); EOSINOPHILS % (AUTO) 1.3 % (0-6); HEMATOCRIT 35.8 % (35.0-45.0); HEMOGLOBIN 10.7 g/dl (12.0-16.0); LYMPHOCYTES # (AUTO) 1.8 X10'3 (1.1-4.8); LYMPHOCYTES % (AUTO) 26.7 % (21-51); MEAN CORPUSCULAR HEMOGLOBIN 22.2 PG (27.0-31.0); MEAN CORPUSCULAR VOLUME 73.8 FL (78-98); MEAN PLATELET VOLUME 9.6 FL (7.4-10.4); MONOCYTES # (AUTO) 0.9 X10'3 (0-0.9); MONOCYTES % (AUTO) 12.6 % (2-12); NEUTROPHILS % (AUTO) 58.2 % (42-75); PLATELET COUNT 122 X10'3 (140-440); RED BLOOD COUNT 4.85 X10'6 (4.20-5.60); WHITE BLOOD COUNT 6.9 X10'3 (4.5-11.0)
--- NOTE | 2019-08-24 06:11 | NUR ---
Problems reprioritized. Patient report given, questions answered & plan of care reviewed with Marilee Jean-Baptiste RN.
[2019-08-24 06:21] LABS: ANION GAP 9 (8-16); BLOOD UREA NITROGEN 43 MG/DL (7-18); BUN/CREATININE RATIO 32.6 (6.6-38.0); CALCIUM 8.8 MG/DL (8.5-10.1); CHLORIDE 100 MMOL/L (99-107); CREATININE 1.32 MG/DL (0.40-0.90); GLUCOSE 89 MG/DL (70-104); MAGNESIUM 1.7 MG/DL (1.5-2.4); POTASSIUM 4.8 MMOL/L (3.5-5.1); SODIUM 139 MMOL/L (135-145); eGFR 43 ML/MIN
--- NOTE | 2019-08-24 06:22 | NUR ---
Patient in room PCU 3013. I have received report from Sagrario CURTIS and had the opportunity to ask questions and assume patient care.
[2019-08-24 07:25] LABS: ANISOCYTOSIS 3+; LARGE PLATELETS FEW; MICROCYTOSIS 1+; PLATELET ESTIMATE DECREASED
[2019-08-24 07:26] LABS: POLYCHROMASIA 1+
[2019-08-24] MEDS: carvedilol 6.25mg tablet PO SCH (08:16)
[2019-08-24] MEDS: levoTHYROXINE 25mcg tablet PO SCH (08:16)
[2019-08-24] MEDS: furosemide 40mg/4ml inj IV SCH ×2 (08:17→20:16)
[2019-08-24] MEDS: nicotine 14mg patch - 24hr TD SCH (08:18)
--- NOTE | 2019-08-24 18:35 | NUR ---
Problems reprioritized. Patient report given, questions answered & plan of care reviewed with Rukhsana CURTIS. All patients needs met at this time.
[2019-08-24] MEDS: DOBUTamine-DoBUTrex 500mg/D5W 250 ML IV SCH (19:17)
[2019-08-24] MEDS: gabapentin 300mg capsule PO SCH (20:16)
[2019-08-24] MEDS: insulin glargine (Lantus) pen - multi-dose SQ SCH (21:00)
[2019-08-25] VITALS (12 sets, daily range): BP systolic 123–164; BP diastolic 54–96
[2019-08-25] MEDS: ipratropium/albuterol 3ml nebule NEB SCH ×6 (02:35→23:04)
--- NOTE | 2019-08-25 06:30 | NUR ---
Problems reprioritized. Patient report given, questions answered & plan of care reviewed with Carito CURTIS.
[2019-08-25 06:40] LABS: BASOPHILS # (AUTO) 0.1 X10'3 (0-0.2); EOSINOPHILS # (AUTO) 0.2 X10'3 (0-0.9); EOSINOPHILS % (AUTO) 2.5 % (0-6); HEMATOCRIT 35.3 % (35.0-45.0); HEMOGLOBIN 10.5 g/dl (12.0-16.0); LYMPHOCYTES # (AUTO) 1.8 X10'3 (1.1-4.8); MEAN CORPUSCULAR HEMOGLOBIN 21.7 PG (27.0-31.0); MEAN CORPUSCULAR HGB CONC 29.7 g/dL (33.0-36.5); MEAN CORPUSCULAR VOLUME 73.1 FL (78-98); MEAN PLATELET VOLUME 9.6 FL (7.4-10.4); MONOCYTES # (AUTO) 0.8 X10'3 (0-0.9); NEUTROPHILS # (AUTO) 3.6 X10'3 (1.8-7.7); NEUTROPHILS % (AUTO) 56.5 % (42-75); PLATELET COUNT 112 X10'3 (140-440); RED BLOOD COUNT 4.83 X10'6 (4.20-5.60); WHITE BLOOD COUNT 6.4 X10'3 (4.5-11.0)
--- NOTE | 2019-08-25 06:43 | NUR ---
Patient in room PCU 3013. I have received report from Rukhsana CURTIS and had the opportunity to ask questions and assume patient care. Dobutamine @ 2.5 mcg infusing. Patient asleep at this time. All immediate needs met.
[2019-08-25 06:47] LABS: ALBUMIN 3.2 G/DL (3.4-5.0); ANION GAP 6 (8-16); BLOOD UREA NITROGEN 45 MG/DL (7-18); BUN/CREATININE RATIO 38.1 (6.6-38.0); CALCIUM 9.1 MG/DL (8.5-10.1); CHLORIDE 96 MMOL/L (99-107); CREATININE 1.18 MG/DL (0.40-0.90); GLUCOSE 72 MG/DL (70-104); MAGNESIUM 1.8 MG/DL (1.5-2.4); POTASSIUM 4.4 MMOL/L (3.5-5.1); SODIUM 136 MMOL/L (135-145); TOTAL CARBON DIOXIDE 33.6 MMOL/L (24-32); eGFR 49 ML/MIN
[2019-08-25 07:15] LABS: LARGE PLATELETS FEW; PLATELET ESTIMATE DECREASED
[2019-08-25 07:16] LABS: HYPOCHROMASIA 1+; POLYCHROMASIA 1+
[2019-08-25 07:17] LABS: ANISOCYTOSIS 3+; ELLIPTOCYTES FEW; MICROCYTOSIS 1+; SPHEROCYTES FEW
[2019-08-25] MEDS: carvedilol 6.25mg tablet PO SCH (07:57)
[2019-08-25] MEDS: levoTHYROXINE 25mcg tablet PO SCH (07:57)
[2019-08-25] MEDS: furosemide 40mg/4ml inj IV SCH ×3 (07:57→19:35)
[2019-08-25] MEDS: nicotine 14mg patch - 24hr TD SCH (07:58)
--- NOTE | 2019-08-25 08:00 | NUR ---
Administered Lasix IV 40mg. Two patient identifiers used. Med administration did not save in computer.
--- NOTE | 2019-08-25 18:23 | NUR ---
Problems reprioritized. Patient report given, questions answered & plan of care reviewed with Kelsey CURTIS. Patient stable at transfer of care.
--- NOTE | 2019-08-25 18:23 | NUR ---
Problems reprioritized. Patient report given, questions answered & plan of care reviewed with EVER Cole.
--- NOTE | 2019-08-25 18:24 | NUR ---
Orientee documentation: I have reviewed and agree with all interventions, assessments performed and documented by EVER Mitchell. Orientee Medication Administration: For this medication-pass time frame, all medication were reviewed, dispensed, administered and documented per hospital policy by Paula CURTIS.
[2019-08-25] MEDS: gabapentin 300mg capsule PO SCH (20:29)
[2019-08-25] MEDS: insulin glargine (Lantus) pen - multi-dose SQ SCH (20:38)
[2019-08-26] VITALS (11 sets, daily range): BP systolic 117–175; BP diastolic 61–105
[2019-08-26] MEDS: ipratropium/albuterol 3ml nebule NEB SCH ×3 (02:32→12:29)
[2019-08-26 05:39] LABS: BASOPHILS % (AUTO) 0.5 % (0-1); EOSINOPHILS # (AUTO) 0.1 X10'3 (0-0.9); HEMATOCRIT 32.6 % (35.0-45.0); HEMOGLOBIN 9.9 g/dl (12.0-16.0); LYMPHOCYTES # (AUTO) 1.1 X10'3 (1.1-4.8); LYMPHOCYTES % (AUTO) 17.9 % (21-51); MEAN CORPUSCULAR HEMOGLOBIN 22.1 PG (27.0-31.0); MEAN CORPUSCULAR HGB CONC 30.3 g/dL (33.0-36.5); MEAN CORPUSCULAR VOLUME 72.8 FL (78-98); MEAN PLATELET VOLUME 9.4 FL (7.4-10.4); MONOCYTES # (AUTO) 0.7 X10'3 (0-0.9); MONOCYTES % (AUTO) 10.9 % (2-12); NEUTROPHILS # (AUTO) 4.3 X10'3 (1.8-7.7); NEUTROPHILS % (AUTO) 68.7 % (42-75); PLATELET COUNT 112 X10'3 (140-440); RED BLOOD COUNT 4.48 X10'6 (4.20-5.60); RED CELL DISTRIBUTION WIDTH 20.8 % (11.5-14.5); WHITE BLOOD COUNT 6.3 X10'3 (4.5-11.0)
[2019-08-26 05:56] LABS: ALBUMIN 2.8 G/DL (3.4-5.0); ANION GAP 2 (8-16); BLOOD UREA NITROGEN 35 MG/DL (7-18); BUN/CREATININE RATIO 38.9 (6.6-38.0); CALCIUM 8.9 MG/DL (8.5-10.1); CHLORIDE 99 MMOL/L (99-107); GLUCOSE 108 MG/DL (70-104); MAGNESIUM 1.8 MG/DL (1.5-2.4); POTASSIUM 4.1 MMOL/L (3.5-5.1); SODIUM 138 MMOL/L (135-145); TOTAL CARBON DIOXIDE 37.4 MMOL/L (24-32); eGFR 67 ML/MIN
--- NOTE | 2019-08-26 06:25 | NUR ---
Patient in room PCU 3013. I have received report from EVER Cole and had the opportunity to ask questions and assume patient care.
--- NOTE | 2019-08-26 06:58 | NUR ---
Problems reprioritized. Patient report given, questions answered & plan of care reviewed with Carolina CURTIS.
[2019-08-26] MEDS: levoTHYROXINE 25mcg tablet PO SCH (08:23)
[2019-08-26] MEDS: furosemide 40mg/4ml inj IV SCH (08:24)
[2019-08-26] MEDS: nicotine 14mg patch - 24hr TD SCH (08:24)
[2019-08-26] MEDS: carvedilol 6.25mg tablet PO SCH (08:24)
--- NOTE | 2019-08-26 09:57 | NUR ---
Initial: Pt presented with c/o progressive SOB, admit with acute decompensated heart failure, likely acute on chronic cor pulmonale/acute on chronic right-sided heart failure per MD notes. Pt with distended abdomen on admission, s/p abdominal ultrasound which did not show presence of ascites per MD notes. Pt currently diuresing on Lasix. Pt on heart healthy CHO controlled diet documented with average 75% PO intake on admission, now consistently with 100% PO intake meeting nutrient needs. D/w dietary to send double protein BIDLD for satiety. [facility] 08/25. No nutrition diagnosis at this time. Will continue to follow. Recommendations: 1) Continue heart healthy CHO controlled diet 2) Double protein BIDLD 3) Bowel care 4) Wt per rx Addendum: 08/26/19 at [address] Amended: Links added.
[2019-08-26] MEDS ORDERED: iohexol 350MG/ML 100ml bottle IV ONE (10:43)
[2019-08-26 10:45] LABS: PLATELET ESTIMATE DECREASED
[2019-08-26 10:46] LABS: HYPOCHROMASIA 1+; POIKILOCYTOSIS 1+; POLYCHROMASIA 1+
[2019-08-26 10:47] LABS: ANISOCYTOSIS 3+; MICROCYTOSIS 1+; SPHEROCYTES FEW
[2019-08-26 10:48] LABS: LARGE PLATELETS FEW; TEAR DROP CELLS FEW
[2019-08-26] MEDS: DOBUTamine-DoBUTrex 500mg/D5W 250 ML IV SCH (11:56)
[2019-08-26] MEDS ORDERED: MESSAGE TO NURSING PO NR (14:00)
[2019-08-26] MEDS ORDERED: carvedilol 6.25mg tablet PO SCH (14:11)
--- NOTE | 2019-08-26 16:00 | NUR ---
Report to KIMBERLY Cole at [facility]/ EMR transport to [facility] @ 1600 via gurney. MATTIE nurse accompanied pt per IV Dobutamin Drip Pt is A&Ox4 and is good spirits
== END 2019-08-26 16:14 | DRG 194 ==
LOC: ER 06:18 → ED HOLD 09:13 → PCU 3S 10:35
PROVIDERS: ADMIT Internal Medicine; ATTEND Internal Medicine
PROC: 3E02340 Introduction of Influenza Vaccine into Muscle, Percutaneous Approach (ICD-10-PCS; principal; 2019-08-23)
PROC: B32T1ZZ Computerized Tomography (CT Scan) of Left Pulmonary Artery using Low Osmolar Contrast (ICD-10-PCS; 2019-08-26)
PROC: B3201ZZ Computerized Tomography (CT Scan) of Thoracic Aorta using Low Osmolar Contrast (ICD-10-PCS; 2019-08-26)
PROC: B32S1ZZ Computerized Tomography (CT Scan) of Right Pulmonary Artery using Low Osmolar Contrast (ICD-10-PCS; 2019-08-26)
DX: I11.0 Hypertensive heart disease with heart failure (principal); J96.11 Chronic respiratory failure with hypoxia; R18.8 Other ascites; E11.42 Type 2 diabetes mellitus with diabetic polyneuropathy; J44.1 Chronic obstructive pulmonary disease with (acute) exacerbation; K74.60 Unspecified cirrhosis of liver; I50.33 Acute on chronic diastolic (congestive) heart failure; F17.210 Nicotine dependence, cigarettes, uncomplicated; E87.6 Hypokalemia; E03.9 Hypothyroidism, unspecified; B18.2 Chronic viral hepatitis C; D64.9 Anemia, unspecified; K21.9 Gastro-esophageal reflux disease without esophagitis; F15.90 Other stimulant use, unspecified, uncomplicated; Z88.1 Allergy status to other antibiotic agents; Z83.3 Family history of diabetes mellitus; Z87.11 Personal history of peptic ulcer disease; Z88.6 Allergy status to analgesic agent; Z23 Encounter for immunization; Z79.82 Long term (current) use of aspirin
CPT/HCPCS: 36415; 71045; 71275; 76705; 80048; 80053; 82948; 83036; 83735; 83880; 84132; 84484; 85025; 85379; 85610; 85730; 87081; 93308; 93970; 94640; 94760; 96365; 96375; 97110; 97161; 97530; 99285; G0378; J0780; J1250; J1815; J1940; J2405; J2930; J3480; Q2037; Q9967

== ENCOUNTER 2019-12-07 21:15 | Inpatient (IN) | payer MEDICAID ==
[~2019-12-07] VITALS: Ht 165.1 cm; Wt 95.0 kg
[~2019-12-07 21:15] MED LIST changes: +CARV-50 PO; +FURO80TA87 PO; -LACT10SO32 PO; -POTA10TA15 PO; -RIFA550T PO
[2019-12-07 21:44] LABS: BASOPHILS % (AUTO) 0.6 % (0-1); EOSINOPHILS # (AUTO) 0.1 X10'3 (0-0.9); EOSINOPHILS % (AUTO) 1.7 % (0-6); HEMATOCRIT 39.8 % (35.0-45.0); HEMOGLOBIN 12.4 g/dl (12.0-16.0); LYMPHOCYTES # (AUTO) 1.1 X10'3 (1.1-4.8); LYMPHOCYTES % (AUTO) 20.3 % (21-51); MEAN CORPUSCULAR HEMOGLOBIN 24.3 PG (27.0-31.0); MEAN CORPUSCULAR HGB CONC 31.2 g/dL (33.0-36.5); MEAN CORPUSCULAR VOLUME 78.1 FL (78-98); MONOCYTES # (AUTO) 0.6 X10'3 (0-0.9); MONOCYTES % (AUTO) 10.3 % (2-12); NEUTROPHILS # (AUTO) 3.7 X10'3 (1.8-7.7); NEUTROPHILS % (AUTO) 67.1 % (42-75); PLATELET COUNT 68 X10'3 (140-440); RED CELL DISTRIBUTION WIDTH 19.1 % (11.5-14.5); WHITE BLOOD COUNT 5.5 X10'3 (4.5-11.0)
[2019-12-07 22:00] LABS: ALANINE AMINOTRANSFERASE 27 U/L (12-78); ALBUMIN 2.8 G/DL (3.4-5.0); ALBUMIN/GLOBULIN RATIO 0.7 (1.1-1.5); ALKALINE PHOSPHATASE 112 IU/L (46-116); ANION GAP 8 (8-16); ASPARTATE AMINO TRANSFERASE 36 U/L (10-37); BILIRUBIN,TOTAL 0.4 MG/DL (0.1-1.0); BLOOD UREA NITROGEN 15 MG/DL (7-18); BUN/CREATININE RATIO 21.7 (6.6-38.0); CALCIUM 8.2 MG/DL (8.5-10.1); CHLORIDE 103 MMOL/L (99-107); CREATININE 0.69 MG/DL (0.40-0.90); GLUCOSE 111 MG/DL (70-104); POTASSIUM 3.6 MMOL/L (3.5-5.1); SODIUM 139 MMOL/L (135-145); TOTAL CARBON DIOXIDE 27.8 MMOL/L (24-32); TOTAL PROTEIN 6.7 G/DL (6.4-8.2); eGFR 90 ML/MIN
[2019-12-07 22:33] LABS: ANISOCYTOSIS 2+; MICROCYTOSIS 1+; PLATELET ESTIMATE DECREASED
[2019-12-07] MEDS ORDERED: nitroGLYCERIN-Tridil 50MG/D5W 250 ML IV ONE ×2 (23:30→23:35)
[2019-12-07] MEDS ORDERED: nitroGLYCERIN-Tridil 50MG/D5W 250 ML IV SCH ×2 (23:40→23:43)
[2019-12-07] MEDS ORDERED: amLODIPine 5mg tablet PO ONE (23:40)
[2019-12-08] VITALS (9 sets, daily range): BP systolic 114–171; BP diastolic 65–93
[2019-12-08] MEDS ORDERED: potassium CL 10mEq/100ml bag 100 ML IV PRN ×2 (00:30)
[2019-12-08] MEDS ORDERED: magnesium Cl slow-release 64mg tablet PO PRN (00:30)
[2019-12-08] MEDS ORDERED: magnesium 2GM in 50ml NS 50 ML IV PRN (00:30)
[2019-12-08] MEDS ORDERED: potassium Cl 20 mEq SR tablet PO PRN ×2 (00:30)
[2019-12-08] MEDS ORDERED: magnesium 4gm in 100ml NS 100 ML IV PRN (00:30)
[2019-12-08] MEDS ORDERED: dextrose 50%-water 50ml dispensing syringe IV PRN ×2 (00:45)
[2019-12-08] MEDS ORDERED: glucagon, human recombinant 1mg kit SUBCUT PRN (00:45)
[2019-12-08] MEDS ORDERED: dextrose ORAL solution 15 GM/59 ML bottle PO PRN ×2 (00:45)
[2019-12-08] MEDS ORDERED: MESSAGE TO PHARMACY PO ONE (00:45)
[2019-12-08] MEDS ORDERED: insulin Lispro (HumaLOG) vial - multi-dose SQ SCH (00:45)
--- NOTE | 2019-12-08 00:51 | NUR ---
Patient in room ED 3. I have received report from Segun CURTIS and had the opportunity to ask questions and assume patient care.
[2019-12-08 01:20] LABS: HEMOGLOBIN A1C 6.6 % (4.5-6.2)
--- NOTE | 2019-12-08 01:20 | NUR ---
PAGER ID: [phone] MESSAGE: Marilin Guerrero 17A: Patient rewuesting breathing tx. Here for SOB. Can we have RT eval and tx? -Ainsley CURTIS [phone]
--- NOTE | 2019-12-08 01:27 | NUR ---
Patient arrived to the floor at 0100. Vital signs stable. Skin check complete. Darting complete. MRSA swab collected. Patient oriented to room, vital signs times, meal times, medication times, and unit policies.
[2019-12-08] MEDS ORDERED: nitroGLYCERIN-Tridil 50MG/D5W 250 ML IV SCH (01:28)
[2019-12-08] MEDS: albuterol 2.5 MG/3 ML nebule NEB PRN ×2 (02:05→20:36)
--- NOTE | 2019-12-08 04:04 | NUR ---
PAGER ID: [phone] MESSAGE: Marilin Guerrero [phone]:Patient was admitted tonight for SOB Currently reporting SOB Sats are fine in the 90s. She has a breathing tx already 2 hours ago,requesting another or her inhaler.Requesting to be taken off the nitro sammi -Ainsley RN [phone]
--- NOTE | 2019-12-08 06:08 | NUR ---
Problems reprioritized. Patient report given, questions answered & plan of care reviewed with Carolina CURTIS.
--- NOTE | 2019-12-08 06:13 | NUR ---
Patient in room PCU 3017. I have received report from EVER Schmitz and had the opportunity to ask questions and assume patient care.
[2019-12-08] MEDS: K and/or MAG REPLACEMENT MC SCH ×2 (08:00→20:00)
[2019-12-08] MEDS ORDERED: METF-436 PO (08:28)
[2019-12-08] MEDS: furosemide 10 MG/1 ML 10ml inj IV SCH ×2 (08:37→08:41)
[2019-12-08] MEDS ORDERED: NICO-731 TOP ×2 (09:26→09:49)
[2019-12-08] MEDS ORDERED: LEVO50TA8 PO ×2 (09:29→10:00)
[2019-12-08] MEDS ORDERED: [UNRECOGNIZED DRUG - OTHER] PO (09:38)
[2019-12-08] MEDS ORDERED: LEVO25TA2 PO ×2 (09:55→09:56)
[2019-12-08] MEDS ORDERED: METF500T PO (10:02)
--- NOTE | 2019-12-08 14:14 | NUR ---
[id number] MESSAGE: [id number] Marilin Early c/o general discomfort. Requests Pearce EVER Figueroa [phone]
[2019-12-08] MEDS ORDERED: HYDR-4383 PO (14:40)
[2019-12-08] MEDS ORDERED: HYDROcodone/acetaminophen 5mg/325mg tablet PO PRN (15:30)
[2019-12-08] MEDS ORDERED: non-formulary drug (Albuterol Sulfate (Ventolin Hfa) 2 PUFFS) INH PRN (15:30)
--- NOTE | 2019-12-08 18:30 | NUR ---
Problems reprioritized. Patient report given, questions answered & plan of care reviewed with EVER Laguerre.
[2019-12-08] MEDS: ondansetron/PF 4mg/2ml inj IV PRN (18:58)
[2019-12-08] MEDS: ferrous sulfate 325mg tablet PO SCH (20:21)
[2019-12-08] MEDS: gabapentin 300mg capsule PO SCH (20:21)
[2019-12-08] MEDS: budesonide 0.5mg/2ml UD nebule IH SCH (20:35)
[2019-12-08] MEDS: insulin glargine (Lantus) pen - multi-dose SQ SCH (21:00)
[2019-12-09] MEDS: ibuprofen tablet 400 MG TABLET PO PRN ×3 (00:46→19:14)
[2019-12-09 02:00] VITALS: BP 107/75
[2019-12-09 06:00] VITALS: BP 114/71
--- NOTE | 2019-12-09 06:16 | NUR ---
Problems reprioritized. Patient report given, questions answered & plan of care reviewed with EVER cintron . Patient stable at shift change
[2019-12-09 06:17] LABS: BASOPHILS % (AUTO) 0.6 % (0-1); EOSINOPHILS # (AUTO) 0.1 X10'3 (0-0.9); LYMPHOCYTES # (AUTO) 1.2 X10'3 (1.1-4.8); MONOCYTES # (AUTO) 0.7 X10'3 (0-0.9)
[2019-12-09 06:19] LABS: EOSINOPHILS % (AUTO) 1.7 % (0-6); HEMATOCRIT 37.1 % (35.0-45.0); HEMOGLOBIN 11.6 g/dl (12.0-16.0); LYMPHOCYTES % (AUTO) 22.9 % (21-51); MEAN CORPUSCULAR HEMOGLOBIN 24.4 PG (27.0-31.0); MEAN CORPUSCULAR HGB CONC 31.2 g/dL (33.0-36.5); MEAN CORPUSCULAR VOLUME 78.2 FL (78-98); MONOCYTES % (AUTO) 13.2 % (2-12); NEUTROPHILS # (AUTO) 3.2 X10'3 (1.8-7.7); NEUTROPHILS % (AUTO) 61.6 % (42-75); PLATELET COUNT 73 X10'3 (140-440); RED BLOOD COUNT 4.74 X10'6 (4.20-5.60); RED CELL DISTRIBUTION WIDTH 19.3 % (11.5-14.5); WHITE BLOOD COUNT 5.1 X10'3 (4.5-11.0)
--- NOTE | 2019-12-09 06:19 | NUR ---
Patient in room PCU 3017. I have received report from EVER Laguerre and had the opportunity to ask questions and assume patient care.
[2019-12-09 06:37] LABS: ALBUMIN 2.7 G/DL (3.4-5.0); ANION GAP 4 (8-16); BLOOD UREA NITROGEN 21 MG/DL (7-18); BUN/CREATININE RATIO 24.1 (6.6-38.0); CALCIUM 8.5 MG/DL (8.5-10.1); CHLORIDE 102 MMOL/L (99-107); CREATININE 0.87 MG/DL (0.40-0.90); GLUCOSE 100 MG/DL (70-104); MAGNESIUM 1.9 MG/DL (1.5-2.4); POTASSIUM 4.3 MMOL/L (3.5-5.1); SODIUM 139 MMOL/L (135-145); TOTAL CARBON DIOXIDE 33.5 MMOL/L (24-32); eGFR 69 ML/MIN
[2019-12-09] MEDS: levoTHYROXINE 25mcg tablet PO SCH ×2 (07:00)
[2019-12-09] MEDS: furosemide 10 MG/1 ML 10ml inj IV SCH (07:09)
[2019-12-09] MEDS: K and/or MAG REPLACEMENT MC SCH ×2 (08:00→20:00)
[2019-12-09] MEDS: gabapentin 300mg capsule PO SCH ×3 (08:00→20:14)
[2019-12-09] MEDS ORDERED: non-formulary drug (Levothyroxine Sodium 1 TAB) PO SCH (08:00)
[2019-12-09] MEDS: ondansetron/PF 4mg/2ml inj IV PRN (08:21)
[2019-12-09] MEDS ORDERED: FLU VACC QS2019-20 36MOS UP/PF 60 MCG/0.5 ML SYRINGE IMVAC ONE (09:00)
[2019-12-09 09:23] LABS: PLATELET ESTIMATE DECREASED
[2019-12-09 09:27] LABS: ANISOCYTOSIS 2+; MICROCYTOSIS 1+; SCHISTOCYTES FEW
[2019-12-09 11:00] VITALS: BP 122/69
[2019-12-09] MEDS: ferrous sulfate 325mg tablet PO SCH ×2 (11:54→20:14)
[2019-12-09] MEDS: lisinopril 20mg tablet PO SCH (11:54)
[2019-12-09] MEDS: nicotine 14mg patch - 24hr TD SCH (11:55)
[2019-12-09] MEDS: amLODIPine 5mg tablet PO SCH (11:57)
[2019-12-09] MEDS: furosemide 40mg/4ml inj IV SCH ×2 (13:06→20:14)
[2019-12-09] MEDS: albuterol 2.5 MG/3 ML nebule NEB PRN (15:14)
[2019-12-09 18:00] VITALS: BP 117/56
--- NOTE | 2019-12-09 18:22 | NUR ---
Patient in room PCU 3013G. I have received report from EVER Rogers and had the opportunity to ask questions and assume patient care. Patient states that she feels better today. She is scheduled for a thoracentesis tomorrow for rt pleural effusion
--- NOTE | 2019-12-09 18:22 | NUR ---
Problems reprioritized. Patient report given, questions answered & plan of care reviewed with EVER Laguerre.
[2019-12-09] MEDS: budesonide 0.5mg/2ml UD nebule IH SCH (19:44)
[2019-12-09] MEDS: insulin glargine (Lantus) pen - multi-dose SQ SCH (21:00)
[2019-12-10] VITALS (8 sets, daily range): BP systolic 98–123; BP diastolic 56–86
--- NOTE | 2019-12-10 06:24 | NUR ---
Patient in room U 3017. I have received report from EVER Laguerre and had the opportunity to ask questions and assume patient care. Patient awake and sitting at the side of the bed and in no acute distress.
[2019-12-10 06:26] LABS: ALBUMIN 2.9 G/DL (3.4-5.0); ANION GAP 4 (8-16); BLOOD UREA NITROGEN 23 MG/DL (7-18); BUN/CREATININE RATIO 25.6 (6.6-38.0); CHLORIDE 101 MMOL/L (99-107); GLUCOSE 99 MG/DL (70-104); MAGNESIUM 1.9 MG/DL (1.5-2.4); POTASSIUM 4.6 MMOL/L (3.5-5.1); SODIUM 140 MMOL/L (135-145); TOTAL CARBON DIOXIDE 34.6 MMOL/L (24-32); eGFR 67 ML/MIN
--- NOTE | 2019-12-10 06:27 | NUR ---
Problems reprioritized. Patient report given, questions answered & plan of care reviewed with EVER Mitchell. Patient stable at shift change
[2019-12-10 06:52] LABS: BASOPHILS % (AUTO) 0.6 % (0-1); EOSINOPHILS # (AUTO) 0.2 X10'3 (0-0.9); EOSINOPHILS % (AUTO) 3.3 % (0-6); HEMATOCRIT 37.7 % (35.0-45.0); HEMOGLOBIN 11.7 g/dl (12.0-16.0); LYMPHOCYTES # (AUTO) 1.2 X10'3 (1.1-4.8); MEAN CORPUSCULAR HEMOGLOBIN 24.7 PG (27.0-31.0); MEAN CORPUSCULAR VOLUME 79.7 FL (78-98); MEAN PLATELET VOLUME 9.4 FL (7.4-10.4); MONOCYTES # (AUTO) 0.7 X10'3 (0-0.9); MONOCYTES % (AUTO) 12.9 % (2-12); NEUTROPHILS # (AUTO) 3.6 X10'3 (1.8-7.7); NEUTROPHILS % (AUTO) 62.2 % (42-75); PLATELET COUNT 76 X10'3 (140-440); RED BLOOD COUNT 4.72 X10'6 (4.20-5.60); RED CELL DISTRIBUTION WIDTH 19.3 % (11.5-14.5); WHITE BLOOD COUNT 5.8 X10'3 (4.5-11.0)
[2019-12-10] MEDS: levoTHYROXINE 25mcg tablet PO SCH ×2 (07:00→07:41)
[2019-12-10] MEDS: ferrous sulfate 325mg tablet PO SCH ×2 (07:41→20:17)
[2019-12-10] MEDS: gabapentin 300mg capsule PO SCH ×3 (07:41→20:18)
[2019-12-10] MEDS: K and/or MAG REPLACEMENT MC SCH ×2 (07:42→20:00)
[2019-12-10] MEDS: lisinopril 20mg tablet PO SCH (07:42)
[2019-12-10] MEDS: furosemide 40mg/4ml inj IV SCH ×3 (07:42→20:18)
[2019-12-10] MEDS: amLODIPine 5mg tablet PO SCH (07:42)
[2019-12-10] MEDS: nicotine 14mg patch - 24hr TD SCH (07:43)
--- NOTE | 2019-12-10 08:14 | NUR ---
Orders to DC duplicate synthroid put in per Dr. Mittal. Patient only takes 50mcg at home.
[2019-12-10] MEDS: budesonide 0.5mg/2ml UD nebule IH SCH ×2 (09:00→20:00)
[2019-12-10 09:28] LABS: PLATELET ESTIMATE DECREASED
[2019-12-10 09:29] LABS: ANISOCYTOSIS 2+; HYPOCHROMASIA 1+; MICROCYTOSIS 1+
[2019-12-10] MEDS: ibuprofen tablet 400 MG TABLET PO PRN (17:09)
--- NOTE | 2019-12-10 18:27 | NUR ---
Patient in room PCU 3010J. I have received report from EVER Mitchell and had the opportunity to ask questions and assume patient care.
--- NOTE | 2019-12-10 18:27 | NUR ---
Problems reprioritized. Patient report given, questions answered & plan of care reviewed with EVER Laguerre. Patient stable at transfer of care.
[2019-12-10] MEDS: heparin, porcine 5000 units/ml vial SQ SCH (20:00)
--- NOTE | 2019-12-10 20:31 | NUR ---
Page Dr. Gaytan: PAGER ID: [phone] MESSAGE: Marilin Guerrero in room #17A platelet's count is 76. Per protocol I have to let you know that I am holding the schedule heparin, unless you recommend otherwise. Thank you, Shade ([phone] character message out of a maximum of [phone])
[2019-12-10] MEDS: insulin glargine (Lantus) pen - multi-dose SQ SCH (21:00)
[2019-12-11] VITALS (7 sets, daily range): BP systolic 85–122; BP diastolic 55–64
[2019-12-11] MEDS: ondansetron/PF 4mg/2ml inj IV PRN ×2 (05:59→23:53)
--- NOTE | 2019-12-11 06:28 | NUR ---
Problems reprioritized. Patient report given, questions answered & plan of care reviewed with EVER Mitchell . Patient stable at shift change
--- NOTE | 2019-12-11 06:37 | NUR ---
Patient in room U 3017. I have received report from EVER Laguerre and had the opportunity to ask questions and assume patient care. Patient awake and sitting up at the side of the bed.
[2019-12-11 07:05] LABS: BASOPHILS % (AUTO) 0.6 % (0-1); EOSINOPHILS # (AUTO) 0.2 X10'3 (0-0.9); HEMATOCRIT 36.4 % (35.0-45.0); HEMOGLOBIN 11.4 g/dl (12.0-16.0); LYMPHOCYTES # (AUTO) 1.3 X10'3 (1.1-4.8); LYMPHOCYTES % (AUTO) 17.7 % (21-51); MEAN CORPUSCULAR HEMOGLOBIN 24.5 PG (27.0-31.0); MEAN CORPUSCULAR HGB CONC 31.3 g/dL (33.0-36.5); MEAN CORPUSCULAR VOLUME 78.2 FL (78-98); MEAN PLATELET VOLUME 10.6 FL (7.4-10.4); MONOCYTES # (AUTO) 0.7 X10'3 (0-0.9); MONOCYTES % (AUTO) 10.1 % (2-12); NEUTROPHILS % (AUTO) 68.6 % (42-75); PLATELET COUNT 84 X10'3 (140-440); RED BLOOD COUNT 4.66 X10'6 (4.20-5.60); RED CELL DISTRIBUTION WIDTH 19.6 % (11.5-14.5); WHITE BLOOD COUNT 7.3 X10'3 (4.5-11.0)
[2019-12-11 07:12] LABS: ALBUMIN 2.6 G/DL (3.4-5.0); ANION GAP 0 (8-16); BLOOD UREA NITROGEN 27 MG/DL (7-18); CALCIUM 8.7 MG/DL (8.5-10.1); CHLORIDE 101 MMOL/L (99-107); GLUCOSE 102 MG/DL (70-104); MAGNESIUM 1.8 MG/DL (1.5-2.4); POTASSIUM 4.5 MMOL/L (3.5-5.1); SODIUM 138 MMOL/L (135-145); TOTAL CARBON DIOXIDE 36.9 MMOL/L (24-32); eGFR 67 ML/MIN
[2019-12-11] MEDS: gabapentin 300mg capsule PO SCH ×3 (07:45→20:57)
[2019-12-11] MEDS: levoTHYROXINE 25mcg tablet PO SCH (07:46)
[2019-12-11] MEDS: ferrous sulfate 325mg tablet PO SCH ×2 (07:47→20:57)
[2019-12-11] MEDS: furosemide 40mg/4ml inj IV SCH ×3 (07:48→20:57)
[2019-12-11] MEDS: amLODIPine 5mg tablet PO SCH (07:48)
[2019-12-11] MEDS: lisinopril 20mg tablet PO SCH (07:48)
[2019-12-11] MEDS: nicotine 14mg patch - 24hr TD SCH (07:49)
[2019-12-11] MEDS: budesonide 0.5mg/2ml UD nebule IH SCH ×2 (08:00→19:48)
[2019-12-11] MEDS: heparin, porcine 5000 units/ml vial SQ SCH ×2 (08:00→20:00)
[2019-12-11] MEDS: K and/or MAG REPLACEMENT MC SCH ×2 (08:00→20:00)
--- NOTE | 2019-12-11 09:31 | NUR ---
Paged Dr. Velázquez regarding holding patient's heparin because platelets were 84 this morning. PAGER ID: [phone] MESSAGE: [id number]. Marilin Guerrero. Held heparin. PLT 84. Thank you. Paula CURTIS x [phone]
[2019-12-11] MEDS: ibuprofen tablet 400 MG TABLET PO PRN (15:54)
--- NOTE | 2019-12-11 18:30 | NUR ---
Patient in room PCU 3017. I have received report from EVER Mitchell and had the opportunity to ask questions and assume patient care.
--- NOTE | 2019-12-11 18:30 | NUR ---
Patient in room U 3017. I have received report from EVER Kwan and had the opportunity to ask questions and assume patient care. Patient stable at transfer of care. Addendum: 12/11/19 at 1832 by Paula Mcdonald RN Problems reprioritized. Patient report given, questions answered & plan of care reviewed with EVER Kwan. Patient stable at transfer of care.
--- NOTE | 2019-12-11 18:56 | NUR ---
Student documentation: I have reviewed and agree with all interventions, assessments performed and documented by SN Koki.
--- NOTE | 2019-12-11 18:57 | NUR ---
Student Medication Administration: For this medication-pass time frame, all medication were reviewed, dispensed, administered and documented per hospital policy by SN Koki.
[2019-12-11] MEDS: albuterol 2.5 MG/3 ML nebule NEB PRN (19:48)
[2019-12-11] MEDS: insulin glargine (Lantus) pen - multi-dose SQ SCH (21:00)
[2019-12-12 03:00] VITALS: BP 109/69
[2019-12-12 06:08] LABS: BASOPHILS % (AUTO) 0.7 % (0-1); EOSINOPHILS # (AUTO) 0.2 X10'3 (0-0.9); EOSINOPHILS % (AUTO) 3.1 % (0-6); HEMATOCRIT 37.2 % (35.0-45.0); HEMOGLOBIN 11.6 g/dl (12.0-16.0); LYMPHOCYTES % (AUTO) 14.2 % (21-51); MEAN CORPUSCULAR HEMOGLOBIN 24.6 PG (27.0-31.0); MEAN CORPUSCULAR HGB CONC 31.2 g/dL (33.0-36.5); MEAN CORPUSCULAR VOLUME 78.6 FL (78-98); MEAN PLATELET VOLUME 10.2 FL (7.4-10.4); MONOCYTES # (AUTO) 0.7 X10'3 (0-0.9); MONOCYTES % (AUTO) 10.4 % (2-12); NEUTROPHILS % (AUTO) 71.6 % (42-75); PLATELET COUNT 102 X10'3 (140-440); RED BLOOD COUNT 4.73 X10'6 (4.20-5.60); RED CELL DISTRIBUTION WIDTH 19.7 % (11.5-14.5)
[2019-12-12 06:16] LABS: ALBUMIN 2.7 G/DL (3.4-5.0); ANION GAP 2 (8-16); BLOOD UREA NITROGEN 23 MG/DL (7-18); BUN/CREATININE RATIO 24.5 (6.6-38.0); CALCIUM 8.6 MG/DL (8.5-10.1); CHLORIDE 99 MMOL/L (99-107); CREATININE 0.94 MG/DL (0.40-0.90); GLUCOSE 118 MG/DL (70-104); MAGNESIUM 1.7 MG/DL (1.5-2.4); POTASSIUM 4.3 MMOL/L (3.5-5.1); SODIUM 139 MMOL/L (135-145); TOTAL CARBON DIOXIDE 37.9 MMOL/L (24-32); eGFR 63 ML/MIN
--- NOTE | 2019-12-12 06:20 | NUR ---
Problems reprioritized. Patient report given, questions answered & plan of care reviewed with EVER Orlando.
--- NOTE | 2019-12-12 06:30 | NUR ---
Patient in room PCU [id number]. I have received report from EVER Kwan and had the opportunity to ask questions and assume patient care.
[2019-12-12 07:04] VITALS: BP 105/58
[2019-12-12] MEDS: levoTHYROXINE 75mcg tablet PO SCH (07:54)
[2019-12-12] MEDS: heparin, porcine 5000 units/ml vial SQ SCH ×3 (07:55→20:00)
[2019-12-12] MEDS: lisinopril 20mg tablet PO SCH (07:55)
[2019-12-12] MEDS: ferrous sulfate 325mg tablet PO SCH ×2 (07:55→20:28)
[2019-12-12] MEDS: furosemide 40mg/4ml inj IV SCH ×3 (07:55→20:28)
[2019-12-12] MEDS: gabapentin 300mg capsule PO SCH ×3 (07:55→20:28)
[2019-12-12] MEDS: amLODIPine 5mg tablet PO SCH (07:55)
[2019-12-12] MEDS: nicotine 14mg patch - 24hr TD SCH (07:56)
[2019-12-12] MEDS: K and/or MAG REPLACEMENT MC SCH ×2 (08:00→19:53)
[2019-12-12 08:14] LABS: ANISOCYTOSIS 2+; HYPOCHROMASIA 1+; MICROCYTOSIS 1+; PLATELET ESTIMATE DECREASED; POLYCHROMASIA 1+
[2019-12-12 08:15] LABS: ELLIPTOCYTES FEW
[2019-12-12] MEDS: budesonide 0.5mg/2ml UD nebule IH SCH ×2 (08:35→22:06)
[2019-12-12 11:00] VITALS: BP 100/67
[2019-12-12] MEDS: ibuprofen tablet 400 MG TABLET PO PRN (11:47)
[2019-12-12 15:00] VITALS: BP 107/57
[2019-12-12 18:00] VITALS: BP 118/68
--- NOTE | 2019-12-12 18:31 | NUR ---
Problems reprioritized. Patient report given, questions answered & plan of care reviewed with EVER Milian.
--- NOTE | 2019-12-12 18:40 | NUR ---
Patient in room PCU 3017. I have received report from Johanny CURTIS and had the opportunity to ask questions and assume patient care.
[2019-12-12] MEDS: insulin glargine (Lantus) pen - multi-dose SQ SCH (20:41)
[2019-12-12 22:00] VITALS: BP 133/69
[2019-12-12] MEDS ORDERED: acetaminophen 325mg tablet PO PRN (22:15)
[2019-12-12] MEDS: albuterol 2.5 MG/3 ML nebule NEB PRN (23:07)
[2019-12-13 02:00] VITALS: BP 130/69
[2019-12-13] MEDS: ibuprofen tablet 400 MG TABLET PO PRN (04:10)
--- NOTE | 2019-12-13 06:02 | NUR ---
Problems reprioritized. Patient report given, questions answered & plan of care reviewed with Johanny CURTIS.
[2019-12-13 06:18] LABS: ALBUMIN 2.6 G/DL (3.4-5.0); ANION GAP 1 (8-16); BLOOD UREA NITROGEN 22 MG/DL (7-18); BUN/CREATININE RATIO 25.6 (6.6-38.0); CALCIUM 8.4 MG/DL (8.5-10.1); CHLORIDE 99 MMOL/L (99-107); CREATININE 0.86 MG/DL (0.40-0.90); GLUCOSE 90 MG/DL (70-104); MAGNESIUM 1.9 MG/DL (1.5-2.4); POTASSIUM 4.2 MMOL/L (3.5-5.1); SODIUM 140 MMOL/L (135-145); TOTAL CARBON DIOXIDE 39.9 MMOL/L (24-32); eGFR 70 ML/MIN
[2019-12-13 06:19] LABS: BASOPHILS % (AUTO) 0.6 % (0-1); EOSINOPHILS # (AUTO) 0.2 X10'3 (0-0.9); EOSINOPHILS % (AUTO) 3.3 % (0-6); HEMATOCRIT 35.2 % (35.0-45.0); HEMOGLOBIN 11.2 g/dl (12.0-16.0); LYMPHOCYTES # (AUTO) 1.5 X10'3 (1.1-4.8); LYMPHOCYTES % (AUTO) 19.7 % (21-51); MEAN CORPUSCULAR HEMOGLOBIN 24.8 PG (27.0-31.0); MEAN CORPUSCULAR HGB CONC 31.7 g/dL (33.0-36.5); MEAN PLATELET VOLUME 10.1 FL (7.4-10.4); MONOCYTES # (AUTO) 0.8 X10'3 (0-0.9); MONOCYTES % (AUTO) 11.1 % (2-12); NEUTROPHILS # (AUTO) 4.8 X10'3 (1.8-7.7); NEUTROPHILS % (AUTO) 65.3 % (42-75); PLATELET COUNT 103 X10'3 (140-440); RED BLOOD COUNT 4.51 X10'6 (4.20-5.60); WHITE BLOOD COUNT 7.4 X10'3 (4.5-11.0)
[2019-12-13 07:04] VITALS: BP 118/68
[2019-12-13] MEDS: K and/or MAG REPLACEMENT MC SCH (08:00)
[2019-12-13] MEDS: heparin, porcine 5000 units/ml vial SQ SCH (08:00)
[2019-12-13] MEDS: furosemide 40mg/4ml inj IV SCH (08:03)
[2019-12-13] MEDS: gabapentin 300mg capsule PO SCH (08:03)
[2019-12-13 08:04] VITALS: BP_SYST 116
[2019-12-13] MEDS: lisinopril 20mg tablet PO SCH (08:04)
[2019-12-13] MEDS: levoTHYROXINE 75mcg tablet PO SCH (08:04)
[2019-12-13] MEDS: nicotine 14mg patch - 24hr TD SCH (08:04)
[2019-12-13] MEDS: amLODIPine 5mg tablet PO SCH (08:04)
[2019-12-13] MEDS: ferrous sulfate 325mg tablet PO SCH (08:05)
[2019-12-13] MEDS: albuterol 2.5 MG/3 ML nebule NEB PRN (08:18)
[2019-12-13] MEDS: budesonide 0.5mg/2ml UD nebule IH SCH (08:18)
[2019-12-13] MEDS ORDERED: LEVO75TA7 PO (10:56)
[2019-12-13] MEDS ORDERED: ALBU8.5H8 INH (10:56)
[2019-12-13] MEDS ORDERED: FURO40TA4 PO (10:56)
--- NOTE | 2019-12-13 12:55 | NUR ---
Patient stable for discharge per MD. Discharge instructions given to patient and spouse, all questions and concerns addressed. New medications faxed to [facility]- [facility]. Patient refused to have follow up appointment made. PIV d/c'd from left hand, catheter intact. Patient instructed to pick pack worker [id number] from [place] on [address], address and phone number provided. Patient transported off unit via wheel chair to private vehicle.
== END 2019-12-13 12:55 | disposition home health service (06) | DRG 194 ==
LOC: ER 21:16 → ED HOLD 12-08 00:35 → EDBEDREQ 12-08 00:41 → PCU 3S 12-08 01:00
PROVIDERS: ADMIT Internal Medicine; ATTEND Family Medicine
PROC: 0W993ZZ Drainage of Right Pleural Cavity, Percutaneous Approach (ICD-10-PCS; principal; 2019-12-10)
DX: I11.0 Hypertensive heart disease with heart failure (principal); I21.A1 Myocardial infarction type 2; J91.8 Pleural effusion in other conditions classified elsewhere; I50.33 Acute on chronic diastolic (congestive) heart failure; E11.42 Type 2 diabetes mellitus with diabetic polyneuropathy; I27.81 Cor pulmonale (chronic); Z99.81 Dependence on supplemental oxygen; B18.2 Chronic viral hepatitis C; F15.90 Other stimulant use, unspecified, uncomplicated; K21.9 Gastro-esophageal reflux disease without esophagitis; E03.9 Hypothyroidism, unspecified; I50.82 Biventricular heart failure; J44.9 Chronic obstructive pulmonary disease, unspecified; K74.60 Unspecified cirrhosis of liver; Z79.890 Hormone replacement therapy; Z79.899 Other long term (current) drug therapy; Z87.11 Personal history of peptic ulcer disease; Z91.19 Patient's noncompliance with other medical treatment and regimen; Z88.5 Allergy status to narcotic agent; Z88.8 Allergy status to other drugs, medicaments and biological substances; Z72.0 Tobacco use; Z71.6 Tobacco abuse counseling
CPT/HCPCS: 32555; 36415; 49083; 71045; 71250; 74176; 76705; 80048; 80053; 82103; 82948; 83036; 83735; 84443; 84484; 85025; 85610; 87081; 93005; 94640; 94760; 97161; 97530; 99285; G0378; J1644; J1815; J1940; J2405; J3490; J7626

== ENCOUNTER 2019-12-15 00:49 | Inpatient (IN) | payer MEDICAID ==
[2019-12-15] VITALS (12 sets, daily range): BP systolic 152–191; BP diastolic 78–107
[~2019-12-15] VITALS: Ht 165.1 cm; Wt 95.0 kg
[~2019-12-15 00:49] MED LIST changes: +ALBU8.5H8 INH; -CARV-50 PO; +FURO40TA4 PO; -FURO80TA87 PO; +HYDR-4383 PO; -IBUP-1984 PO; -LEVO25TA7 PO; +LEVO75TA7 PO; -METF-436 PO; +METF500T PO; +NICO-731 TOP; +[UNRECOGNIZED DRUG - OTHER] PO
[2019-12-15] MEDS ORDERED: dexamethasone sod phosphate 10mg/ml inj IV STA (00:54)
[2019-12-15 01:24] LABS: BASOPHILS # (AUTO) 0.1 X10'3 (0-0.2); BASOPHILS % (AUTO) 1.5 % (0-1); EOSINOPHILS # (AUTO) 0.2 X10'3 (0-0.9); EOSINOPHILS % (AUTO) 2.7 % (0-6); HEMATOCRIT 38.6 % (35.0-45.0); LYMPHOCYTES # (AUTO) 1.1 X10'3 (1.1-4.8); LYMPHOCYTES % (AUTO) 15.1 % (21-51); MEAN CORPUSCULAR HEMOGLOBIN 24.7 PG (27.0-31.0); MEAN CORPUSCULAR HGB CONC 31.1 g/dL (33.0-36.5); MEAN CORPUSCULAR VOLUME 79.4 FL (78-98); MEAN PLATELET VOLUME 9.5 FL (7.4-10.4); MONOCYTES # (AUTO) 0.6 X10'3 (0-0.9); MONOCYTES % (AUTO) 8.3 % (2-12); NEUTROPHILS # (AUTO) 5.2 X10'3 (1.8-7.7); NEUTROPHILS % (AUTO) 72.4 % (42-75); PLATELET COUNT 137 X10'3 (140-440); RED BLOOD COUNT 4.86 X10'6 (4.20-5.60); RED CELL DISTRIBUTION WIDTH 20.4 % (11.5-14.5); WHITE BLOOD COUNT 7.2 X10'3 (4.5-11.0)
[2019-12-15 01:30] LABS: D-DIMER 1.17 MG/L FEU (0-0.50)
[2019-12-15 01:34] LABS: ALANINE AMINOTRANSFERASE 48 U/L (12-78); ALBUMIN 2.9 G/DL (3.4-5.0); ALBUMIN/GLOBULIN RATIO 0.7 (1.1-1.5); ALKALINE PHOSPHATASE 122 IU/L (46-116); ANION GAP 4 (8-16); ASPARTATE AMINO TRANSFERASE 47 U/L (10-37); BILIRUBIN,TOTAL 0.7 MG/DL (0.1-1.0); BLOOD UREA NITROGEN 12 MG/DL (7-18); BUN/CREATININE RATIO 15.8 (6.6-38.0); CALCIUM 8.8 MG/DL (8.5-10.1); CHLORIDE 101 MMOL/L (99-107); CREATININE 0.76 MG/DL (0.40-0.90); GLUCOSE 174 MG/DL (70-104); POTASSIUM 3.5 MMOL/L (3.5-5.1); SODIUM 141 MMOL/L (135-145); TOTAL PROTEIN 7.2 G/DL (6.4-8.2); eGFR 81 ML/MIN
--- NOTE | 2019-12-15 02:56 | NUR ---
Vascular with patient
[2019-12-15 03:06] LABS: ANISOCYTOSIS 3+; PLATELET ESTIMATE DECREASED; POLYCHROMASIA FEW
[2019-12-15] MEDS ORDERED: OMEP40CA13 PO (03:17)
[2019-12-15] MEDS ORDERED: mag hydrox/Alum hydrox/simeth 30ml oral suspension PO PRN (04:45)
[2019-12-15] MEDS ORDERED: acetaminophen 325mg tablet PO PRN (04:45)
[2019-12-15] MEDS ORDERED: magnesium hydroxide 30ml (MOM) UD suspension PO PRN (04:45)
[2019-12-15] MEDS ORDERED: magnesium 2GM in 50ml NS 50 ML IV PRN (04:45)
[2019-12-15] MEDS ORDERED: potassium CL 10mEq/100ml bag 100 ML IV PRN ×2 (04:45)
[2019-12-15] MEDS ORDERED: ondansetron/PF 4mg/2ml inj IV PRN (04:45)
[2019-12-15] MEDS ORDERED: magnesium 4gm in 100ml NS 100 ML IV PRN (04:45)
[2019-12-15] MEDS ORDERED: potassium Cl 20 mEq SR tablet PO PRN ×2 (04:45)
[2019-12-15] MEDS ORDERED: magnesium Cl slow-release 64mg tablet PO PRN (04:45)
[2019-12-15] MEDS ORDERED: dextrose ORAL solution 15 GM/59 ML bottle PO PRN ×2 (04:55)
[2019-12-15] MEDS ORDERED: dextrose 50%-water 50ml dispensing syringe IV PRN ×2 (04:55)
[2019-12-15] MEDS ORDERED: insulin Lispro (HumaLOG) vial - multi-dose SQ SCH (04:55)
[2019-12-15] MEDS ORDERED: MESSAGE TO PHARMACY PO ONE (04:55)
[2019-12-15] MEDS ORDERED: glucagon, human recombinant 1mg kit SUBCUT PRN (04:55)
[2019-12-15] MEDS ORDERED: furosemide 20 MG/2 ML vial IV SCH ×2 (05:31→08:00)
--- NOTE | 2019-12-15 05:45 | NUR ---
Spoke with Dr Wagner, regarding patients high blood pressures 190's 180's. Received order to give morning medications early.
[2019-12-15] MEDS ORDERED: lisinopril 20mg tablet PO SCH ×2 (06:00→08:00)
[2019-12-15] MEDS ORDERED: amLODIPine 5mg tablet PO SCH ×2 (06:00→08:00)
[2019-12-15] MEDS ORDERED: levoTHYROXINE 75mcg tablet PO SCH (07:00)
[2019-12-15] MEDS ORDERED: heparin, porcine 5000 units/ml vial SQ SCH (08:00)
[2019-12-15] MEDS ORDERED: pantoprazole 40mg Tablet.DR PO SCH (08:00)
[2019-12-15] MEDS ORDERED: gabapentin 300mg capsule PO SCH (08:00)
[2019-12-15] MEDS ORDERED: nicotine 14mg patch - 24hr TD SCH (08:00)
[2019-12-15] MEDS ORDERED: K and/or MAG REPLACEMENT MC SCH (08:00)
--- NOTE | 2019-12-15 08:38 | NUR ---
PAGER ID: [phone] MESSAGE: [phone] [id number]. pt. Marilin Guerrero. pt. has been hypertensive all morning. TREVON DHILLON okayed giving pt. Lasix, Norvasc, and lisinopril early. it has been about 1.5 hrs since last meds and BP is still 164/91. please advise. EVER Barillas [phone] Addendum: 12/15/19 at 0842 by Nargis eBe RN called back. advised RN to recheck BP on both arms in 30 minutes.
[2019-12-15] MEDS ORDERED: budesonide 0.5mg/2ml UD nebule IH SCH (09:00)
[2019-12-15 11:00] LABS: MAGNESIUM 1.8 MG/DL (1.5-2.4)
--- NOTE | 2019-12-15 12:00 | NUR ---
pt. is upset that she has been NPO all day for a few ordered tests. the MD, RN and charge nurse have tried to explain to her that in order for us to help her, she needs the test, and they require her to be NPO. pt. is not accepting this answer and is shouting into the hallway about how she wants food or she will leave and that she wants to talk to our boss.
--- NOTE | 2019-12-15 12:30 | NUR ---
pt. went AMA at 1215. security had to be called once she would not calm down about having to be NPO. nursing staff wheeled her downstairs with security escorting them.
[2019-12-15] MEDS ORDERED: insulin glargine (Lantus) pen - multi-dose SQ SCH (21:00)
[2019-12-16 08:10] LABS: CANCER ANTIGEN 125 77.3 U/mL (0.0-38.1); CARCINOEMBRYONIC ANTIGEN 7.6 ng/mL (0.0-4.7)
== END 2019-12-15 12:15 | disposition left against medical advice (07) | DRG 194 ==
LOC: ER 00:50 → ED HOLD 05:14 → MED 3N 05:15
PROVIDERS: ADMIT Internal Medicine; ATTEND Internal Medicine
DX: I11.0 Hypertensive heart disease with heart failure (principal); E11.42 Type 2 diabetes mellitus with diabetic polyneuropathy; R18.8 Other ascites; K74.60 Unspecified cirrhosis of liver; B19.20 Unspecified viral hepatitis C without hepatic coma; I50.33 Acute on chronic diastolic (congestive) heart failure; E03.9 Hypothyroidism, unspecified; J44.9 Chronic obstructive pulmonary disease, unspecified; Z87.11 Personal history of peptic ulcer disease; Z53.29 Procedure and treatment not carried out because of patient's decision for other reasons; Z88.1 Allergy status to other antibiotic agents; Z88.5 Allergy status to narcotic agent; Z88.8 Allergy status to other drugs, medicaments and biological substances; Z79.899 Other long term (current) drug therapy; Z72.0 Tobacco use; Z71.6 Tobacco abuse counseling; Z91.19 Patient's noncompliance with other medical treatment and regimen
CPT/HCPCS: 36415; 71045; 80053; 82378; 82948; 83735; 83880; 84484; 85025; 85379; 86304; 87081; 93005; 93971; 93975; 94760; 96374; 99285; G0378; J1100; J1644; J1815; J1940